=== PATIENT | female | born 1935 | race Caucasian/White ===

== ENCOUNTER → 2017-01-26 | Outpatient (CLI) | payer OTHER | LOC: CIMAGING 10:13 | PROVIDERS: ATTEND Internal Medicine | DX: Z12.31 Encounter for screening mammogram for malignant neoplasm of breast (principal); Z85.3 Personal history of malignant neoplasm of breast | CPT/HCPCS: G0202 ==

== ENCOUNTER → 2017-02-04 | Outpatient (CLI) | payer OTHER | LOC: BRMIMAGING 08:33 | PROVIDERS: ATTEND Internal Medicine | DX: Z13.820 Encounter for screening for osteoporosis (principal); M85.80 Other specified disorders of bone density and structure, unspecified site; Z82.62 Family history of osteoporosis ==

== ENCOUNTER → 2017-03-25 | Outpatient (CLI) | payer OTHER | LOC: FIMAGING 08:12 | PROVIDERS: ATTEND Physical Medicine & Rehabilitation | DX: M50.31 Other cervical disc degeneration, high cervical region (principal); M48.02 Spinal stenosis, cervical region; G95.20 Unspecified cord compression ==

== ENCOUNTER → 2017-04-04 | Outpatient (CLI) | payer OTHER ==
[~2017-04-04] MED LIST: METOCLOPRAMIDE 10 MG/2 ML VIAL ONE; MIDAZOLAM 2 MG/2 ML VIAL ONE; ONDANSETRON 4 MG/2 ML VIAL ONE; PHENYLEPHRINE HCL 100 MCG/ML SYR ONE; PROPOFOL 200 MG/20 ML VIAL ONE; PROPOFOL/EMULSION 500 MG/50 ML BOTTLE IV ONE; ROCURONIUM 50 MG/5 ML VIAL ONE; fentaNYL 100 MCG/2 ML INJ ONE
== END ==
LOC: CIMAGING 11:31
PROVIDERS: ATTEND Internal Medicine
DX: Z01.818 Encounter for other preprocedural examination (principal); R91.1 Solitary pulmonary nodule; I10 Essential (primary) hypertension; J44.9 Chronic obstructive pulmonary disease, unspecified; M48.9 Spondylopathy, unspecified
CPT/HCPCS: 71020-PO; J2250; J2370; J2405; J2704; J2765; J3010

== ENCOUNTER 2017-04-05 14:15 | Inpatient (IN) | payer OTHER ==
[2017-04-06] MEDS ORDERED: ceFAZolin 2 GM/DEXTROSE 100 ML IV ONE (06:10)
[2017-04-06] MEDS ORDERED: THROMBIN (BOVINE) 5,000 UNIT VIAL TP ONE (06:31)
[2017-04-06] MEDS ORDERED: BUPIVACAINE 0.25% 30 ML SDV ONE (06:31)
[2017-04-06] MEDS ORDERED: BACITRACIN 50,000 UNITS/10 ML SYR IRR ONE (06:32)
[2017-04-06] MEDS ORDERED: LIDOCAINE 1% 2 ML INJ ID PRN (06:36)
[2017-04-06] MEDS ORDERED: LR 1,000 ML IV ONE (06:36)
--- NOTE | 2017-04-06 06:54 | PDANEPAE ---
ANE Past Medical History - Cardiovascular History Hx Hypertension: Yes Hx Arrhythmias: No Hx Chest Pain: No Hx Coronary Artery / Peripheral Vascular Disease: No Hx CHF / Valvular Disease: No Hx Palpitations: No Cardiovascular History Comment: pcp monitors bp meds. born with heart murmur - Pulmonary History Hx COPD: No Hx Asthma/Reactive Airway Disease: No Hx Recent Upper Respiratory Infection: No Hx Oxygen in Use at Home: No Hx Sleep Apnea: No Sleep Apnea Screening Result - Last Documented: Negative Pulmonary History Comment: increase in sob being at elevation- lives in [place] most of the year. mild emphysema- no symptoms - Neurologic History Hx Cerebrovascular Accident: No Hx Seizures: No Hx Dementia: No - Endocrine History Hx Diabetes: No - Renal History Hx Renal Disorders: Yes Renal History Comment: hx of uti's - Liver History Hx Hepatic Disorders: No - Cancer History Hx Cancer: Yes Cancer History Comment: breast 2005 with chemo and radiation - Congenital Disorder History Hx Congenital Disorders: No - GI History Hx Gastrointestinal Disorders: Yes Gastrointestinal History Comment: sm hernia. runs constipation to diarrhea - Other Health History Other Health History: thin skin- bruises easily - Chronic Pain History Chronic Pain: Yes (right shoulder) - Surgical History Prior Surgeries: cataracts. right rtc repair. emergent hysterectomy. tonsillectomy. appy. lumpectomy. partial mastectomy and axillary node disection. carleen ANE Review of Systems Review of Systems: - Exercise capacity METS (RN): 2 METS ANE Patient History - Allergies Allergies/Adverse Reactions: nitrofurantoin Allergy (Verified 05/23/16 12:22) Itching - Home Medications Home Medications: Atenolol BID 05/23/16 [Last Taken Unknown] Methenamine Mandelate BID 05/23/16 [Last Taken Unknown] Nexium DAILY 05/23/16 [Last Taken Unknown] Tamoxifen Citrate DAILY06 05/23/16 [Last Taken Unknown] Triamterene/Hydrochlorothiazid DAILY06 05/23/16 [Last Taken Unknown] ZYRTEC DAILY06 05/23/16 [Last Taken Unknown] Herbal Drugs DAILY 04/04/17 [Last Taken Unknown] - NPO status NPO Since - Liquids (Date): 04/06/17 NPO Since - Liquids (Time): 05:00 NPO Since - Solids (Date): 04/05/17 NPO Since - Solids (Time): 19:30 - Smoking Hx Smoking Status: Former smoker - Family Anes Hx Family Hx Anesthesia Complications: None ANE Labs/Vital Signs - Vital Signs Blood Pressure: 113/62 Heart Rate: 71 Respiratory Rate: 16 O2 Sat (%): 92 Height: 160.02 cm Weight: 58.967 kg ANE Physical Exam - Airway Neck exam: decreased ROM Mallampati Score: Class 1 - ASA Status ASA Status: II ANE Anesthesia Plan Anesthesia Plan: general endotracheal anesthesia
--- NOTE | 2017-04-06 07:08 | PDHPUP ---
History & Physical Update H&P update statement: This history and physical update is based on an assessment of the patient which was completed after admission or registration (within 24 hours), but prior to the surgery/procedure. Patient reports some new tingling in her right thumb, index and middle fingers since her last appt.
[2017-04-06] MEDS ORDERED: LACTULOSE 20 GM/30 ML UDCUP PO PRN (09:11)
[2017-04-06] MEDS ORDERED: BISACODYL 10 MG SUPP PR PRN (09:11)
[2017-04-06] MEDS ORDERED: ONDANSETRON 4 MG/2 ML VIAL IVP PRN (09:11)
[2017-04-06] MEDS ORDERED: diphenhydrAMINE 25 MG CAP PO PRN (09:11)
[2017-04-06] MEDS ORDERED: MAGNESIUM HYDROXIDE 30 ML UDCUP PO PRN (09:11)
[2017-04-06] MEDS ORDERED: NS 1,000 ML IV SCH (09:15)
[2017-04-06] MEDS ORDERED: OXYCODONE/APAP 5/325 TAB PO PRN (09:47)
[2017-04-06] MEDS ORDERED: MEPERIDINE 25 MG/ML SYR IVP PRN (09:47)
[2017-04-06] MEDS ORDERED: NALOXONE HCL 0.4 MG/ML INJ IVP PRN (09:47)
[2017-04-06] MEDS ORDERED: LR 500 ML IV PRN (09:47)
[2017-04-06] MEDS ORDERED: PROMETHAZINE HCL 25 MG/ML INJ IVP PRN (09:47)
[2017-04-06] MEDS ORDERED: HYDROCODONE/APAP 5/325 TAB PO PRN (09:47)
[2017-04-06] MEDS ORDERED: DEXAMETHASONE 4 MG/ML VIAL IVP PRN (09:47)
--- NOTE | 2017-04-06 09:49 | POSTANESTH ---
Post Anesthetic Evaluation Cardiovascular Status: Normal, Stable Respiratory Status: Normal, Stable Level of Consciousness/Mental Status: Can Participate in Eval Pain Control: Adequate, Prn Tx Ordered Nausea/Vomiting Control: Adequate, Prn Tx Ordered Complications Possibly Related to Anesthesia: None Noted
[2017-04-06] MEDS ORDERED: fentaNYL 100 MCG/2 ML INJ ONE (10:35)
[2017-04-06] MEDS ORDERED: HYDROCODONE/APAP 5/325 TAB ONE ×2 (10:36→10:46)
[2017-04-06] MEDS: fentaNYL 100 MCG/2 ML INJ IVP PRN ×2 (10:43→11:18)
--- NOTE | 2017-04-06 10:52 | SOAPPROG ---
SOAP Progress Note Assessment/Plan: POST OP CHECK: Assessment: Doing well after C3-5 ACDF Plan: Hard collar at all times transfer to floor per Protocol 04/06/17 10:33 Subjective: sitting up in her bed b/c it is more comfortable speaking, oriented, comfortable voice is a bit hoarse Objective: Vital Signs Temp Pulse Resp BP Pulse Ox 36.8 C 71 16 113/62 92 04/06/17 06:20 04/06/17 06:54 04/06/17 06:54 04/06/17 06:54 04/06/17 06:54 Vitals: HR:72 BP; 153/61 02:100% NC Neuro: WILLIAMSON, sens +LT 4+5 bilateral deltoid (effort dependant) 5/5 otherwise in arms ICD10 Worksheet Patient Problems: Problems Problem Status Onset Primary localized osteoarthritis of left knee Acute
[2017-04-06] MEDS: ACETAMINOPHEN 500 MG TAB PO SCH ×2 (14:28→22:10)
[2017-04-06] MEDS: ceFAZolin 2 GM/DEXTROSE 100 ML IV SCH ×2 (14:31→22:25)
[2017-04-06] MEDS: oxyCODONE IR 5 MG TAB PO PRN ×4 (14:37→22:46)
[2017-04-06] MEDS: POLYETHYLENE GLYCOL 3350 17 GM PKT PO SCH ×2 (15:37→22:08)
[2017-04-06] MEDS: METHOCARBAMOL 750 MG TAB PO PRN (20:17)
[2017-04-06] MEDS ORDERED: METHENAMINE MANDELATE 500 MG PO SCH (21:00)
[2017-04-06] MEDS: SENNOSIDES/DOCUSATE SODIUM TAB PO SCH (22:07)
[2017-04-06] MEDS: FAMOTIDINE 20 MG TAB PO SCH (22:08)
[2017-04-06] MEDS: ATENOLOL 50 MG TAB PO SCH (22:09)
--- NOTE | 2017-04-07 01:16 | GOP ---
[f rep st] OPERATIVE REPORT DATE OF OPERATION: 04/06/2017 SURGEON: Jacobo Elizabeth MD [employer]ANGUAGES DEPARTMENT CHAIR: Gaudencio Burden, PAC. ANESTHESIA: General endotracheal. PREOPERATIVE DIAGNOSIS: 1. Progressive multilevel cervical spondylitic myelopathy. 2. Large disk herniation at C3-4 greater than C4-5. 3. Severe spinal cord compression. 4. High risk surgical candidate given age of 82 years, comorbidities, and required surgical interven tion. POSTOPERATIVE DIAGNOSIS: 1. Progressive multilevel cervical spondylitic myelopathy. 2. Large disk herniation at C3-4 greater than C4-5. 3. Severe spinal cord compression. 4. High risk surgical candidate given age of 82 years, comorbidities, and required surgical interven tion. PROCEDURE PERFORMED: 1. Mini open exposure for complete C3-4 and C4-5 anterior cervical diskectomy and arthrodesis with 2 structural PEEK interbody spacers, local autograft, and demineralized bone matrix. 2. Partial C4 vertebral corpectomy for decompression of spinal canal. 3. Placement of a C3 through C5 anterior cervical plate with self-drilling screws. 4. Use of intraoperative microscopy and fluoroscopy. FINDINGS: ESTIMATED BLOOD LOSS: Trace. INDICATIONS: The patient is an 82-year-old woman with multilevel cervical disk herniations causing s ignificant central canal stenosis and spinal cord compression, C3-4 greater than C4-5 levels. She pr esents now for surgical intervention. She was recently diagnosed with 2 pulmonary nodules that the [facility] is aware of, and I discussed this with the patient's primary care physician, Dr. Rachael knox. There is no impending doom with regard to the cancer and I felt that it was definitely in the pat ient's best interest to proceed with surgery decompressing her spinal cord due to the progression of her symptoms prior to working out the details of her possible lung cancer. DESCRIPTION OF PROCEDURE: After informed consent was obtained, the patient was taken to the operatin g room and placed in the supine position with the head in the halter retractor system. The anterior cervical region was prepped and draped in usual sterile fashion. After fluoroscopic localization of correct levels, the subcutaneous and intramuscular tissues were infiltrated with local anesthesia. A horizontal incision was then created at the level of the C4 vertebral body. This was carried throug h the platysmal layer using monopolar electrocautery and carried in the avascular plane between the s ternocleidomastoid and carotid sheath laterally and the strap muscles, trachea, and esophagus mediall y down to the prevertebral fascia, which was carefully incised with Metzenbaum scissors. The C3-4 an d C4-5 interspaces were identified and verified using intraoperative fluoroscopy. The large osteophy avelina were carefully removed and [place] distraction pins inserted and placed under slight amount of dis traction. The patient's bone was very soft and the inferior [place] pin migrated to the vertebral bod y into the C5-6 disk space and cracked some of the osteophytes protruding anteriorly. The pin was re moved and replaced in a different position, the osteophyte at the C5-6 level was removed, and the dis k fragments that had been disrupted were removed as well. I considered extending the fusion down to the C5-6 level but felt that it was not in her best interest based on the preoperative MRI and the fa ct that I found another location to secure the [place] distraction pin. I felt that the C5-6 level wa s not likely to give her problems in the future based on all the information I had. Following this a nd placing a slight amount of distraction across the interspaces, complete diskectomies were performe d at C3-4 and C4-5 levels under high-power microscopy. The endplates were prepared and the posterior longitudinal ligaments removed at these levels. Bilateral foraminotomies were performed. There was an extremely large disk herniation at the C3-4 level as well as the osteophytes protruding posterior ly, which were carefully removed. This required a fairly extensive amount of drilling at the superio r and inferior endplates of the C4 vertebral body. Approximately 50% of the vertebral body was drill ed away in order to adequately decompress the central canal and bilateral neural foramina at each lev el. This amounted to a partial C4 vertebral corpectomy. Following adequate decompression, the remai colette endplates were carefully prepared and appropriately sized structural PEEK interbody spacers pack ed with local autograft and demineralized bone matrix were placed in the interspaces under fluoroscop ic image guidance. The distraction was removed and an appropriately sized LnK CastleLoc-P anterior c ervical plate was then placed and secured from C3 through C5. The screw purchase was not terribly st roseanna but enough to likely hold the plate as long as she was in a hard collar for some time. The leida ining demineralized bone matrix was placed in the anterior hole of the plate. A drain was placed. T he subcutaneous and intramuscular tissues were re-infiltrated with local anesthesia and the wound was closed in a layered fashion using interrupted Vicryl sutures followed by Steri-Strips on the skin. COMPLICATIONS: None. DISPOSITION: The patient was extubated and transferred to the recovery room in stable condition. /[id number]/MODL
[2017-04-07] MEDS: ONDANSETRON DISINTEGRATING 4 MG TAB PO PRN ×2 (03:52→20:10)
[2017-04-07 05:02] LABS: % IMMATURE GRANULYOCYTES 0.9 % (0.0-1.1); ABSOLUTE IMMATURE GRANULOCYTES 0.08 10^3/uL (0.00-0.10); ABSOLUTE NRBC COUNT 0.04 10^3/uL (0-0.01); ADD DIFF? NO; ADD MORPH? NO; ADD SCAN? NO; ATYPICAL LYMPHOCYTE FLAG 10 (0-99); FRAGMENT RBC FLAG 0 (0-99); HEMATOCRIT 31.7 % (38.0-47.0); HEMOGLOBIN 10.7 g/dL (12.6-16.3); LEFT SHIFT FLG 0 (0-99); LIPEMIA HEMOLYSIS FLAG 90 (0-99); MEAN CELL HEMOGLOBIN 31.3 pg (27.9-34.1); MEAN CELL HEMOGLOBIN CONCENTR. 33.8 g/dL (32.4-36.7); MEAN CELL VOLUME 92.7 fL (81.5-99.8); MEAN PLATELET VOLUME 12.5 fL (8.7-11.7); NRBC-AUTO% 0.5 % (0.0-0.2); PLATELET CLUMPS FLAG 0 (0-99); PLATELET COUNT 172 10^3/uL (150-400); RED BLOOD CELL COUNT 3.42 10^6/uL (4.18-5.33); RED CELL DISTRIBUTION WIDTH 12.6 % (11.5-15.2)
[2017-04-07 05:09] LABS: ANION GAP 7 mEq/L (8-16); CALCIUM 8.4 mg/dL (8.5-10.4); CARBON DIOXIDE 26 mEq/l (22-31); CHLORIDE 100 mEq/L (97-110); CREATININE 0.7 mg/dL (0.6-1.0); GLOMERULAR FILTRATION RATE > 60; GLUCOSE 120 mg/dL (70-100); POTASSIUM 4.1 mEq/L (3.5-5.2); SODIUM 133 mEq/L (134-144)
[2017-04-07] MEDS: METHOCARBAMOL 750 MG TAB PO PRN ×3 (06:39→17:21)
[2017-04-07] MEDS: oxyCODONE IR 5 MG TAB PO PRN ×3 (06:39→17:54)
[2017-04-07] MEDS: ACETAMINOPHEN 500 MG TAB PO SCH ×3 (06:39→22:22)
--- NOTE | 2017-04-07 07:34 | SOAPPROG ---
SOAP Progress Note Assessment/Plan: Assessment: 82 yo F POD #1 C3-5 ACDF Plan: stable appreciate oncology consult last night will have her work with ST for dysphagia hard collar for 3 months PT/OT scd/natacha/lovenox for dvt prophylaxis will likelly DC RYANN prior to dc home patient seen by Dr Harris this am please call with neuro changes 04/07/17 07:31 Subjective: continued issue with dysphagia and neck pain. No arm pain, no weakness. Objective: Vital Signs Temp Pulse Resp BP Pulse Ox 36.8 C 68 16 114/55 L 93 04/07/17 04:00 04/07/17 04:00 04/07/17 04:00 04/07/17 04:00 04/07/17 04:00 Laboratory Results 04/07/17 04:24 04/07/17 04:24 04/06/17 04/07/17 04/08/17 05:59 05:59 05:59 Intake Total 700 Output Total 40 Balance 660 AAOX4, +FC PERRL, EOMI, no facial droop 5/5 + light touch C/D/I ICD10 Worksheet Patient Problems: Problems Problem Status Onset Primary localized osteoarthritis of left knee Acute
[2017-04-07] MEDS: CETIRIZINE 10 MG TAB PO SCH (08:25)
[2017-04-07] MEDS: TAMOXIFEN CITRATE 10 MG TAB PO SCH (08:26)
[2017-04-07] MEDS: ATENOLOL 50 MG TAB PO SCH ×2 (08:26→20:10)
[2017-04-07] MEDS: SENNOSIDES/DOCUSATE SODIUM TAB PO SCH ×2 (08:27→20:09)
[2017-04-07] MEDS: FAMOTIDINE 20 MG TAB PO SCH ×2 (08:27→20:10)
[2017-04-07] MEDS: TRIAMTERENE/HCTZ 37.5/25 1 EACH CAP PO SCH ×2 (08:27→08:52)
[2017-04-07] MEDS: POLYETHYLENE GLYCOL 3350 17 GM PKT PO SCH ×3 (08:31→23:06)
[2017-04-07] MEDS: ENOXAPARIN 40 MG/0.4 ML SYR SC SCH (08:58)
[2017-04-07] MEDS ORDERED: NON-FORMULARY NEW DRUG (Tamoxifen Citrate [Tamoxifen Citrate] 20 MG) PO SCH (09:00)
--- NOTE | 2017-04-07 14:38 | ASMTCMCOM ---
CM Note CM Note Notes: HR COORDINATOR clears pt, OT rec home vs. HHC vs. SNF, PT rec HHC. Spoke with pt and ana Chao, pt wants to consider short SNF placement and wants to ask surgeon his opinion. If SNF is d/c plan, pt can go Tuesday if medically stable. This CM left SNF and HHC lists. CM to follow. Date Signed: 04/07/2017 02:38 PM Electronically Signed By:VANE Abernathy
[2017-04-08] MEDS: ACETAMINOPHEN 500 MG TAB PO SCH ×3 (05:00→20:15)
--- NOTE | 2017-04-08 08:34 | SOAPPROG ---
SOAP Progress Note Assessment/Plan: Assessment: 82 yo F POD #2 C3-5 ACDF. Doing well. Plan: Pt/OT/ST DC planning. She is a candidate for SNF vs home with [facility]. hard collar for 3 months PT/OT scd/natacha/lovenox for dvt prophylaxis Plan: Hard collar at all times x 3 months speech therapy Continue Lovenox Subjective: standing at bedside. She is unsteady on her feet. Denies numbness, tingling or weakness. Has ongoing, expected dysphagia She is wearing her hard collar Objective: Vital Signs Temp Pulse Resp BP Pulse Ox 37.1 C 70 14 106/57 L 95 04/08/17 07:28 04/08/17 07:28 04/08/17 07:28 04/08/17 07:28 04/08/17 07:28 Laboratory Results 04/07/17 04:24 04/07/17 04:24 04/07/17 04/08/17 04/09/17 05:59 05:59 05:59 Intake Total 700 300 Output Total 40 Balance 660 300 Xrays show stable hardware C3-5 Neuro: WILLIAMSON, sens +LT with improved sensation in left hand ambulatory, but unsteady and needs walker Dressing: CDI No RYANN ICD10 Worksheet Patient Problems: Problems Problem Status Onset Primary localized osteoarthritis of left knee Acute
[2017-04-08] MEDS ORDERED: ENOXAPARIN 40 MG/0.4 ML SYR SC SCH (09:00)
[2017-04-08] MEDS: POLYETHYLENE GLYCOL 3350 17 GM PKT PO SCH ×3 (09:10→22:45)
[2017-04-08] MEDS: ATENOLOL 50 MG TAB PO SCH ×2 (09:10→20:10)
[2017-04-08] MEDS: SENNOSIDES/DOCUSATE SODIUM TAB PO SCH ×2 (09:10→22:45)
[2017-04-08] MEDS: TRIAMTERENE/HCTZ 37.5/25 1 EACH CAP PO SCH (09:11)
[2017-04-08] MEDS: CETIRIZINE 10 MG TAB PO SCH (09:11)
[2017-04-08] MEDS: TAMOXIFEN CITRATE 10 MG TAB PO SCH (09:11)
[2017-04-08] MEDS: FAMOTIDINE 20 MG TAB PO SCH ×2 (09:11→20:10)
[2017-04-08] MEDS: ENOXAPARIN 40 MG/0.4 ML SYR SC SCH (09:12)
--- NOTE | 2017-04-08 14:03 | ASMTCMCOM ---
CM Note CM Note Notes: Met at length w pt & ana Jeremie about d/c plan of care, today pt wants to go home w husb support and HHC. Gloria alex [facility] alerted. Pt plans to d/c tomorrow. Date Signed: 04/08/2017 02:02 PM Electronically Signed By:VANE Abernathy
--- NOTE | 2017-04-08 14:25 | ASMTCMCOM ---
CM Note CM Note Notes: This afternoon pt & husb decide for d/c to [facility]. Referral sent, Charley meeting w family. CM to follow. Date Signed: 04/08/2017 02:23 PM Electronically Signed By:VANE Abernathy
[2017-04-09] MEDS: ACETAMINOPHEN 500 MG TAB PO SCH ×3 (06:25→15:09)
[2017-04-09] MEDS: ATENOLOL 50 MG TAB PO SCH (08:12)
[2017-04-09] MEDS: ENOXAPARIN 40 MG/0.4 ML SYR SC SCH (08:12)
[2017-04-09] MEDS: CETIRIZINE 10 MG TAB PO SCH (08:14)
[2017-04-09] MEDS: FAMOTIDINE 20 MG TAB PO SCH (08:14)
[2017-04-09] MEDS: TAMOXIFEN CITRATE 10 MG TAB PO SCH (08:14)
[2017-04-09] MEDS: TRIAMTERENE/HCTZ 37.5/25 1 EACH CAP PO SCH (08:14)
[2017-04-09] MEDS: POLYETHYLENE GLYCOL 3350 17 GM PKT PO SCH (08:15)
[2017-04-09] MEDS: SENNOSIDES/DOCUSATE SODIUM TAB PO SCH (08:16)
[2017-04-09 11:59] VITALS: BP 114/55; PULSE 61; RESP 16; TEMP 98.7; O2SAT 93
--- NOTE | 2017-04-09 12:06 | NEUSURGPN ---
Assessment/Plan: Assessment: 82 yo F POD #3 C3-5 ACDF. Doing well. Plan: Pt/OT/ST Pain well managed on oral medications DC to [facility] today . hard collar for 3 months PT/OT scd/natacha/lovenox for dvt prophylaxis Continue Lovenox for 2 weeks postop [address] with Dr. Kimberly Santos: Patient is doing well, her swallowing is better with cold soft foods. Arms feel the same but are improving in strength. Eager to go to rehab. O: NAD, VSS Hard cervical collar in place BUE 5/5 BLE 5/5= DTR brisk 3+ bilateral patellar Negative Cheney's Gait not visualized Incision c/d/i- - Physician Discussed Patient with : [facility] Physical Exam - Vitals, I&O, Labs I and O 04/08/17 04/09/17 04/10/17 05:59 05:59 05:59 Intake Total 300 250 480 Balance 300 250 480 Intake: Oral (ml) 300 250 480 Other: Intake Quantity Yes Yes Yes Sufficient Number of Voids Toilet 1 Number of Stools Toilet 4 Vital Signs Temp Pulse Resp BP Pulse Ox 37.1 C 61 16 114/55 L 93 04/09/17 11:55 04/09/17 11:55 04/09/17 11:55 04/09/17 11:55 04/09/17 11:55 Laboratory Results 04/07/17 04:24 04/07/17 04:24 ICD10 Worksheet Patient Problems: Problems Problem Status Onset Primary localized osteoarthritis of left knee Acute
--- NOTE | 2017-04-09 12:12 | PDIAF ---
- Diagnosis Code Status: Full Code - Medication Management Discharge Medications: Medications to Continue on Transfer Atenolol [Tenormin 50 mg (*)] 50 mg PO BID 05/23/16 [Last Taken 04/06/17 05:00] Cetirizine [ZyrTEC 10 mg (*)] 10 mg PO DAILY 05/23/16 [Last Taken 04/03/17] Tamoxifen Citrate 20 mg PO DAILY 05/23/16 [Last Taken 04/04/17] Triamterene/Hydrochlorothiazid [Triamterene-Hctz 37.5-25 mg Cp] 1 each PO DAILY 05/23/16 [Last Taken 04/05/17] Herbals/Supplements -Info Only 1 each PO DAILY 04/04/17 [Last Taken Unknown] Methenamine Mandelate [METHENAMINE MANDELATE] 500 mg PO BID 04/06/17 [Last Taken Unknown] Omeprazole [Prilosec 20 mg] 40 mg PO DAILY 04/06/17 [Last Taken 04/04/17] Acetaminophen [Tylenol ES 500 mg (*)] 1,000 mg PO Q8HRS tab 04/09/17 [Last Taken Unknown] Enoxaparin [Lovenox 40 MG (*)] 40 mg SC DAILY syr 04/09/17 [Last Taken Unknown] Methocarbamol [Robaxin 750 mg (*)] 750 mg PO QID PRN tab 04/09/17 [Last Taken Unknown] Ondansetron Odt [Zofran Odt 4 mg (*)] 4 - 8 mg PO Q6HRS PRN tab 04/09/17 [Last Taken Unknown] Polyethylene Glycol 3350 [Miralax 17 gm (*)] 17 gm PO TID pkt 04/09/17 [Last Taken Unknown] Sennosides/Docusate Sodium [Senokot-S] 1 - 2 tab PO BID tab 04/09/17 [Last Taken Unknown] oxyCODONE IR [Oxycodone Ir (*)] 5 - 10 mg PO Q4HRS PRN tab 04/09/17 [Last Taken Unknown] Discharge Medications: Refer to the Discharge Home Medication list for PRN reason. - Orders Services needed: Registered Nurse, Physical Therapy, Occupational Therapy Diet Recommendation: no restrictions on diet Diet Texture: Dysphagia 2 - Mechanically Altered - Chopped, Ground, Thin Liquids , Meds Whole in Puree Grant Stockings Discontinue Date: Contin Lovenox for 2 weeks postop. Continue stockings until walking 3X day Wound Care Instructions: may get incision wet on postop day #3, warm soapy water ok, pat dry with towel. may remove large dressing. Activity/Weight Bearing Restrictions: wear your collar at all times for 3 months may use Liz collar for shower. No lifting more than 10 pounds - Follow Up Care Current Providers and Referrals: Krystal Yarbrough MD [Primary Care Provider] - Jacobo Elizabeth MD [Medical Doctor] - follow up in 2 weeks (as scheduled on April 19)
--- NOTE | 2017-04-09 12:35 | ASDISCHSUM ---
Discharge Information Plan Status:SNF Medically Cleared to Leave: Discharge Date: D/C Disposition: ADT D/C Disposition:Other Rehab, Not Foley Projected Discharge Date:04/09/2017 11:00 AM Transportation at D/C: Discharge Delay Reason: Follow-Up Date:04/09/2017 11:00 AM Discharge Slot: Final Diagnosis: Placement Information Referral Type:*Retirement/SNF Referral ID:[id number]-[id number] Provider Name:Yamile Fair Address 1:[address] Phone Number: Address 2: Fax Number: City:[place] Selection Factors: State:[place] Patient Contact Information Contact Name:NASRA Relationship: Address:[address] Home Phone: City:[place] Alternate Phone: [facility]/Zip Code:[place] [address] Email: Financial Information Financial Class: Primary Plan Desc:MEDICARE INPATIENT Primary Plan Number:[id number] Secondary Plan Desc:[facility] Secondary Plan Number:[id number] Assessment Information [facility] CM Progress Note CM Note CM Note Notes: WELDING TESTER clears pt, OT rec home vs. HHC vs. SNF, PT rec HHC. Spoke with pt and ana Chao, pt wants to consider short SNF placement and wants to ask surgeon his opinion. If SNF is d/c plan, pt can go Tuesday if medically stable. This CM left SNF and HHC lists. CM to follow. Date Signed: 04/07/2017 02:38 PM Electronically Signed By:VANE Abernathy [facility] CM Progress Note CM Note CM Note Notes: Met at length w pt & husb Jeremie about d/c plan of care, today pt wants to go home w [facility] support and [facility]. Gloria alex [facility] alerted. Pt plans to d/c tomorrow. Date Signed: 04/08/2017 02:02 PM Electronically Signed By:VANE Abernathy [facility] CM Progress Note CM Note CM Note Notes: This afternoon pt & ana decide for d/c to [facility]. Referral sent, Vero dickson. CM to follow. Date Signed: 04/08/2017 02:23 PM Electronically Signed By:VANE Abernathy [facility] CM Progress Note CM Note CM Note Notes: Pt ready for DC today. [facility] arranged W/C pickup for 4:00 with [facility]. Final orders faxed. Date Signed: 04/09/2017 12:33 PM Electronically Signed By:Kendra Berry LCSW Intervention Information
--- NOTE | 2017-04-10 10:58 | POSTOPPROG ---
Post Op Note Date of Operation: 04/10/17 Surgeon: Jacobo Elizabeth Recording Artist: Jenise Anesthesia: GET(General Endotracheal) Pre-op Diagnosis: Cervical spondylitic myelopathy, cervical stenosis Post-op Diagnosis: same Indication: Myelopathy Procedure: C3/4,C4/5 ACDF and C3-5 plating, partial C5/6 discectomy Findings: severe stenosis Inf/Abcess present in the surg proc area at time of surgery?: No EBL: 50-100 Complications: See Dr. Elizabeth's operative report Drains: Erasmo Ren (to bulb suction)
== END 2017-04-09 16:05 | DRG 473 ==
LOC: OBSVTOIN 04-06 05:51 → F3N 04-06 05:51
PROVIDERS: ADMIT Neurological Surgery; ATTEND Neurological Surgery
DX: M50.01 Cervical disc disorder with myelopathy, high cervical region (principal); R13.10 Dysphagia, unspecified; J43.9 Emphysema, unspecified; Z87.891 Personal history of nicotine dependence; R91.8 Other nonspecific abnormal finding of lung field; I10 Essential (primary) hypertension; M19.91 Primary osteoarthritis, unspecified site; Z85.3 Personal history of malignant neoplasm of breast
CPT/HCPCS: 71020-PO; 71250-PO; 80053-PO; 85025-PO; 92526-GN; 92610-GN; 97116-GP; 97161-GP; 97165-GO; 97535-GO; C1713; G8978-GP-CK; G8979-GP-CI; G8987-GO-CJ; G8988-GO-CI; G8996-GN-CJ; G8997-GN-CI; J0171; J0690; J1650; J2250; J2370; J2405; J2704; J2765; J3010

== ENCOUNTER → 2017-04-05 | Outpatient (CLI) | payer OTHER | LOC: CIMAGING 13:28 | PROVIDERS: ATTEND Internal Medicine | DX: R91.1 Solitary pulmonary nodule (principal); I70.8 Atherosclerosis of other arteries | CPT/HCPCS: 71250-PO ==

== ENCOUNTER → 2017-04-22 | Outpatient (CLI) | payer OTHER ==
[~2017-04-22] MED LIST changes: +IOPAMIDOL (ISOVUE-300) 100 ML BTL ONE; -METOCLOPRAMIDE 10 MG/2 ML VIAL ONE; -MIDAZOLAM 2 MG/2 ML VIAL ONE; -ONDANSETRON 4 MG/2 ML VIAL ONE; -PHENYLEPHRINE HCL 100 MCG/ML SYR ONE; -PROPOFOL 200 MG/20 ML VIAL ONE; -PROPOFOL/EMULSION 500 MG/50 ML BOTTLE IV ONE; -ROCURONIUM 50 MG/5 ML VIAL ONE; -fentaNYL 100 MCG/2 ML INJ ONE
== END ==
LOC: CIMAGING 10:04
PROVIDERS: ATTEND Internal Medicine
DX: N28.89 Other specified disorders of kidney and ureter (principal); K57.30 Diverticulosis of large intestine without perforation or abscess without bleeding
CPT/HCPCS: 74170; Q9967

== ENCOUNTER 2017-05-13 09:29 | Day surgery (SDC) | payer OTHER ==
[2017-05-13] MEDS ORDERED: NS 1,000 ML IV SCH ×2 (09:45)
[2017-05-13] MEDS ORDERED: GLUCAGON HCL 1 MG VIAL IVP PRN ×2 (09:45)
[2017-05-13] MEDS ORDERED: ALTEPLASE 2 MG VIAL IVP PRN ×2 (09:45)
[2017-05-13] MEDS ORDERED: PROTAMINE SULFATE 50 MG/5 ML VIAL IVP PRN ×2 (09:45)
[2017-05-13] MEDS ORDERED: HEPARIN 10,000 UNIT/10 ML MDV IVP PRN ×2 (09:45)
[2017-05-13] MEDS ORDERED: fentaNYL 100 MCG/2 ML INJ IVP PRN ×2 (09:46)
[2017-05-13] MEDS ORDERED: MIDAZOLAM 2 MG/2 ML VIAL IVP PRN ×2 (09:46)
[2017-05-13] MEDS ORDERED: NALOXONE HCL 0.4 MG/ML INJ IVP PRN ×2 (09:46)
[2017-05-13] MEDS ORDERED: MEPERIDINE 25 MG/ML SYR IVP PRN ×2 (09:46)
[2017-05-13] MEDS ORDERED: FLUMAZENIL 0.5 MG/5 ML MDV IVP PRN ×2 (09:46)
[2017-05-13 10:25] VITALS: TEMP 98.9
[2017-05-13] MEDS ORDERED: FLUMAZENIL 0.5 MG/5 ML MDV IVP ONE ×2 (10:50)
[2017-05-13] MEDS ORDERED: NALOXONE HCL 0.4 MG/ML INJ ONE ×2 (10:50)
[2017-05-13] MEDS ORDERED: fentaNYL 100 MCG/2 ML INJ ONE ×2 (10:50)
[2017-05-13] MEDS ORDERED: MIDAZOLAM 2 MG/2 ML VIAL ONE ×2 (10:50)
--- NOTE | 2017-05-13 11:21 | PDPROPOC ---
Sedation Plan of Care Sedation Plan of Care: vital signs stable, mental status noted, patient educated of risks, benefits, alternatives, patient can tolerate sedation ASA Classification: ASA 3 Mallampati Score: Class 2 Mallampati Reference Image: Patient passed 3-3-2 rule?: Yes
--- NOTE | 2017-05-13 11:23 | PDGENHP ---
History & Physical Chief Complaint: YUE nodule History of Present Illness: Needs tissue for diagnosis. S/P recent cervical fusion with colar on. Dr. Harris permitted taking colar off while patient is in neutral position. Pertinent Past, Social, Family History: N/A Relevant Physical Exam: Small peripherally based YUE lung nodule. Cardiorespiratory Assessment: Lungs clear. Heart R/R
[2017-05-13] MEDS ORDERED: oxyCODONE IR 5 MG TAB PO PRN ×2 (13:27)
[2017-05-13] MEDS ORDERED: ACETAMINOPHEN 325 MG TAB PO PRN ×2 (14:04)
--- NOTE | 2017-05-13 14:32 | PDRADPN ---
Radiology Procedure Note Date of Procedure: 05/13/17 Radiologist: Zoey Gandhi Anesthesia: IV Sedation Pre-op Diagnosis: YUE NODULE Post-op Diagnosis: SAME Indication: NEEDS TISSUE DIAGNOSIS Procedure: CT GUIDED YUE NODULE BIOPSY Finding(s): SMALL PTX; CORES OBTAINED Inf/Abcess present in the surg proc area at time of surgery?: No EBL: Minimal Complications: SMALL PTX Specimen(s): SEVERAL CORES SENT TO PATH.
[2017-05-13 15:56] VITALS: PULSE 60; RESP 14
[2017-05-13 16:37] VITALS: BP 111/65; O2SAT 92
== END 2017-05-13 17:00 | disposition home or self-care (01) ==
LOC: FIMAGING 09:29
PROVIDERS: ATTEND Internal Medicine Hematology & Oncology
PROC: 0BBG3ZX Excision of Left Upper Lung Lobe, Percutaneous Approach, Diagnostic (ICD-10-PCS; principal; 2017-05-13 12:55)
DX: C34.12 Malignant neoplasm of upper lobe, left bronchus or lung (principal); J95.811 Postprocedural pneumothorax; M50.30 Other cervical disc degeneration, unspecified cervical region; N28.1 Cyst of kidney, acquired; I10 Essential (primary) hypertension; Z87.891 Personal history of nicotine dependence; Z85.3 Personal history of malignant neoplasm of breast; Z98.1 Arthrodesis status
CPT/HCPCS: J2250; J2310; J3010

== ENCOUNTER 2017-05-31 09:39 | Inpatient (IN) | payer OTHER ==
--- NOTE | 2017-05-30 23:03 | GHP ---
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 This was found incidentally with a nodule on chest x-ray and was followed up by CT scan an d PET scans. She is otherwise asymptomatic. She does have a 40 pack-year smoking history and quit a t age 56. She has no prior documented COPD or use of oxygen or inhalers. She had pulmonary function tests with pulmonology which in short are near normal, with evidence of mild obstructive disease radha t seems to improve slightly after bronchodilators. Of note, she is wearing a hard collar today after fairly recent cervical spine surgery with Dr. Sj greenberg. PAST MEDICAL HISTORY: Mild COPD as described above. Left breast cancer about 12 years ago, treated with lumpectomy, lymph node dissection, chemotherapy, and radiation treatment, followed by tamoxifen. Also arthritis, cataracts, cold sores, hypertension, history of pneumonia, recurrent urinary tract infections. PAST SURGICAL HISTORY: Appendectomy, axillary dissection, breast biopsy, breast lumpectomy, cataract surgery, gallbladder removal, hysterectomy, knee surgery, lumpectomy, rotator cuff, tonsillectomy, c ervical spine surgery. MEDICATIONS: Include atenolol, biotin, cetirizine, cranberry, Dyazide, fluticasone, glucosamine jennifer droitin, methenamine mandelate, multivitamin, omeprazole, Robaxin, tamoxifen, Tylenol. ALLERGIES: Furadantin causes itching and severe swelling. SOCIAL HISTORY: Patient is a former smoker. Quit at age 56. Was a 1 pack per day if not more 40-ye ar smoker. REVIEW OF SYSTEMS: Negative for lung cancer. PHYSICAL EXAMINATION: GENERAL: A well-groomed thin but nourished 82-year-old female, alert and orie nted x3, in no acute distress. HEENT: Normocephalic, atraumatic. Pupils equal and round. No neck bruits. CHEST: Clear to auscultation bilaterally, without wheezes, rhonchi, or rales. No work of b reathing. CARDIAC: Regular rate and rhythm. ABDOMEN: Soft, nontender. EXTREMITIES: Warm and dry . No edema. PSYCH: Normal mood and affect. NEURO: Grossly intact. IMPRESSION: This is an 82-year-old female, currently in a hard collar after a cervical spine surgery , with a history of breast cancer, now with a new primary left upper lobe lung cancer. PLAN: Plan is to proceed with a left video-assisted thorascopic surgery with lobectomy, possible tho racotomy. Risks and options have been discussed including, but not limited to, bleeding, infection, nerve injury, rib fractures, pneumonia, pneumothorax, hemothorax, damage to surrounding structures, a nd other problems, and she requests to proceed. Again, we have obtain PFTs with Pulmonology, Dr. Maurilio Chadwick. She requests to proceed. /[id number]/MODL
[2017-05-31] MEDS ORDERED: ceFAZolin 2 GM/DEXTROSE 100 ML IV ONE (10:00)
[2017-05-31] MEDS ORDERED: LR 1,000 ML IV ONE (10:01)
[2017-05-31] MEDS ORDERED: LIDOCAINE 1% 2 ML INJ ID PRN (10:01)
[2017-05-31] MEDS ORDERED: ceFAZolin 2 GM/SWFI 2 GM/20 ML SYR IVP ONE (10:30)
[2017-05-31 11:01] LABS: ANION GAP 12 mEq/L (8-16); CARBON DIOXIDE 22 mEq/l (22-31); CHLORIDE 102 mEq/L (97-110); CREATININE 0.7 mg/dL (0.6-1.0); GLOMERULAR FILTRATION RATE > 60; GLUCOSE 87 mg/dL (70-100); POTASSIUM 4.4 mEq/L (3.5-5.2); SODIUM 136 mEq/L (134-144)
[2017-05-31] MEDS ORDERED: BUPIVACAINE 0.5% 30 ML SDV ONE ×2 (12:48→16:43)
[2017-05-31] MEDS ORDERED: MIDAZOLAM 2 MG/2 ML VIAL ONE (14:10)
[2017-05-31] MEDS ORDERED: fentaNYL 100 MCG/2 ML INJ ONE ×4 (14:10→17:49)
[2017-05-31] MEDS ORDERED: PROPOFOL/EMULSION 500 MG/50 ML BOTTLE IV ONE (14:10)
[2017-05-31] MEDS ORDERED: ALBUMIN 5% 250 ML BOTTLE IV ONE (14:19)
[2017-05-31] MEDS ORDERED: HEPARIN 1000 UNIT/1 ML MDV ONE (15:48)
[2017-05-31] MEDS ORDERED: ceFAZolin 1 GM/5 ML SYR ONE (15:49)
[2017-05-31] MEDS ORDERED: ONDANSETRON 4 MG/2 ML VIAL ONE (15:57)
[2017-05-31] MEDS ORDERED: ROCURONIUM 50 MG/5 ML VIAL ONE ×2 (15:57→17:02)
[2017-05-31] MEDS ORDERED: DEXAMETHASONE 4 MG/ML VIAL ONE (15:57)
[2017-05-31] MEDS ORDERED: SUGAMMADEX SODIUM 200 MG/2 ML VIAL IVP ONE (15:57)
[2017-05-31] MEDS ORDERED: LIDOCAINE 2% 5 ML SDV ONE (15:57)
[2017-05-31] MEDS ORDERED: RANITIDINE 50 MG/2 ML VIAL ONE (15:57)
[2017-05-31 16:26] LABS: BASE EXCESS -3.3 mEq/L (-2.5-2.5); BICARBONATE 22 mEq/L (22-26); IONIZED CALCIUM 1.17 MMOL/L (1.12-1.30); MEASURED OXYGEN SATURATION 97 % (92-95); PCO2 41 mmHg (34-38); PO2 108 mmHg (65-75); SODIUM ABG 136 mEq/L (137-146); TCO2 23 mEq/L (23-27)
[2017-05-31 16:29] LABS: O2 CONCENTRATIION 100 % (0-100); P/F RATIO 108 RATIO
[2017-05-31] MEDS ORDERED: ONDANSETRON 4 MG/2 ML VIAL IVP PRN ×3 (17:25→17:32)
--- NOTE | 2017-05-31 17:25 | POSTOPPROG ---
Post Op Note Date of Operation: 05/31/17 Surgeon: Carlton Benavides Engineer And Geologist: Ruthy Sparks Anesthesiologist: Zandra Sawant Anesthesia: GET(General Endotracheal) Pre-op Diagnosis: YUE squamous lung cancer Post-op Diagnosis: same Procedure: L VATS c L thoracotomy and YUE lobectomy Findings: tumor in specimen, bronchial margin confirmed clear by pathology Inf/Abcess present in the surg proc area at time of surgery?: No EBL: 300cc Complications: none Drains: Other (2 - 28 Fr chest tubes)
[2017-05-31] MEDS ORDERED: ALBUTEROL 3 ML DEYVIAL IH PRN (17:28)
[2017-05-31] MEDS ORDERED: NALOXONE HCL 0.4 MG/ML INJ IVP PRN (17:28)
[2017-05-31] MEDS ORDERED: LR 500 ML IV PRN (17:28)
[2017-05-31] MEDS ORDERED: METHOCARBAMOL 750 MG TAB PO PRN (17:30)
[2017-05-31] MEDS ORDERED: NS 1,000 ML IV SCH (17:30)
--- NOTE | 2017-05-31 17:30 | PDANEPAE ---
ANE Past Medical History - Cardiovascular History Hx Hypertension: Yes Hx Arrhythmias: No Hx Chest Pain: No Hx Coronary Artery / Peripheral Vascular Disease: No Hx CHF / Valvular Disease: No Hx Palpitations: No Cardiovascular History Comment: pcp monitors bp meds - Pulmonary History Hx COPD: No Hx Asthma/Reactive Airway Disease: No Hx Recent Upper Respiratory Infection: No Hx Oxygen in Use at Home: No Hx Sleep Apnea: No Sleep Apnea Screening Result - Last Documented: Negative Pulmonary History Comment: L lobe lulng CA. increase in sob being at elevation - lives in [place] most of the year. mild emphysema- no symptoms -stopped smoking 1989 - Neurologic History Hx Cerebrovascular Accident: No Hx Seizures: No Hx Dementia: No - Endocrine History Hx Diabetes: No - Renal History Hx Renal Disorders: No Renal History Comment: hx of uti's - Liver History Hx Hepatic Disorders: No - Neurological & Psychiatric Hx Hx Neurological and Psychiatric Disorders: Yes Neurological / Psychiatric History Comment: weakness L arm, w/weakness - Cancer History Hx Cancer: Yes Cancer History Comment: L breast 2005 with chemo and radiation - Congenital Disorder History Hx Congenital Disorders: No - GI History Hx Gastrointestinal Disorders: Yes Gastrointestinal History Comment: sm hernia. hard stools - Other Health History Other Health History: thin skin- bruises easily - Chronic Pain History Chronic Pain: No - Surgical History Prior Surgeries: ACDF 04-06-17. cataracts. right rotator cuff repair. emergent hysterectomy. tonsillectomy. appy. anterior cervial infusion C3-4, 4 -5. partial L knee replacement. lumpectomy. partial mastectomy and axillary node disection. carleen BECKIE Review of Systems Review of Systems: - Exercise capacity METS (RN): 4 METS ANE Patient History - Allergies Allergies/Adverse Reactions: nitrofurantoin Allergy (Mild, Verified 05/10/17 11:25) Itching - Home Medications Home Medications: Atenolol [Tenormin 50 mg (*)] 50 mg PO BID 05/23/16 [Last Taken 05/31/17 07:00] Cetirizine [ZyrTEC 10 mg (*)] 10 mg PO DAILY 05/23/16 [Last Taken 05/31/17 07:00 ] Tamoxifen Citrate 20 mg PO DAILY 05/23/16 [Last Taken 05/31/17 07:00] Triamterene/Hydrochlorothiazid [Triamterene-Hctz 37.5-25 mg Cp] 1 each PO DAILY 05/23/16 [Last Taken 05/30/17 20:00] Herbals/Supplements -Info Only 1 each PO DAILY 04/04/17 [Last Taken 05/30/17 08: 00] Methenamine Mandelate [METHENAMINE MANDELATE] 500 mg PO BID 04/06/17 [Last Taken 05/31/17 07:00] Esomeprazole Mag Trihydrate [Nexium] 40 mg PO DAILY 05/10/17 [Last Taken ] Acetaminophen [Tylenol ES 500 mg (*)] 1,000 mg PO Q8HRS PRN 05/30/17 [Last Taken 05/31/17 07:30] Methocarbamol [Robaxin 750 mg (*)] 750 mg PO DAILY PRN 05/30/17 [Last Taken ] - NPO status NPO Since - Liquids (Date): 05/31/17 NPO Since - Liquids (Time): 08:30 NPO Since - Solids (Date): 05/30/17 NPO Since - Solids (Time): 21:00 - Smoking Hx Smoking Status: Former smoker - Family Anes Hx Family Hx Anesthesia Complications: None ANE Labs/Vital Signs - Labs Result Diagrams: 05/31/17 10:35 - Vital Signs Blood Pressure: 139/66 Heart Rate: 62 Respiratory Rate: 16 O2 Sat (%): 94 Height: 160.02 cm Weight: 56.245 kg ANE Physical Exam - Airway Neck exam: FROM, C-collar in place Mallampati Score: Class 1 Mouth exam: normal dental/mouth exam - Pulmonary Pulmonary: no respiratory distress, no rales or rhonchi, reduced air movement - Cardiovascular Cardiovascular: regular rate and rhythym, no murmur, rub, or gallop - ASA Status ASA Status: III ANE Anesthesia Plan Anesthesia Plan: general endotracheal anesthesia Lines/Monitors: arterial line Specialized Airway: double lumen tube, video laryngoscope
[2017-05-31] MEDS: fentaNYL 100 MCG/2 ML INJ IVP PRN ×2 (17:53→18:04)
--- NOTE | 2017-05-31 18:24 | POSTANESTH ---
Post Anesthetic Evaluation Cardiovascular Status: Normal, Stable Respiratory Status: Normal, Stable Level of Consciousness/Mental Status: Mildly Sleepy, Arousable Pain Control: Adequate, Prn Tx Ordered Nausea/Vomiting Control: Adequate, Prn Tx Ordered Complications Possibly Related to Anesthesia: None Noted
[2017-05-31] MEDS: HYDROmorphONE/DILAUDID 1 MG/ML INJ IVP PRN ×3 (19:54→21:22)
[2017-05-31] MEDS: ATENOLOL 50 MG TAB PO SCH (21:23)
[2017-05-31] MEDS: METHENAMINE HIPP 1 GM TAB PO SCH ×2 (21:24→21:31)
[2017-05-31] MEDS: BUPIVACAINE 0.5% 30 ML SDV MISC SCH ×2 (21:47→22:24)
[2017-06-01] MEDS: BUPIVACAINE 0.5% 30 ML SDV MISC SCH ×6 (01:42→23:52)
[2017-06-01] MEDS: DEXMEDETOMIDINE IN 0.9 % NACL 100 ML IV SCH ×2 (02:43→13:00)
[2017-06-01] MEDS: NS W/ 20 KCl/L 1,000 ML IV SCH ×2 (04:49→18:00)
[2017-06-01] MEDS: HYDROmorphONE/DILAUDID 1 MG/ML INJ IVP PRN ×2 (04:54→09:09)
[2017-06-01 04:59] LABS: HEMATOCRIT 32.9 % (38.0-47.0); HEMOGLOBIN 11.4 g/dL (12.6-16.3)
[2017-06-01 05:54] LABS: ANION GAP 11 mEq/L (8-16); CARBON DIOXIDE 22 mEq/l (22-31); CHLORIDE 104 mEq/L (97-110); CREATININE 0.6 mg/dL (0.6-1.0); GLOMERULAR FILTRATION RATE > 60; GLUCOSE 137 mg/dL (70-100); POTASSIUM 4.2 mEq/L (3.5-5.2); SODIUM 137 mEq/L (134-144)
[2017-06-01] MEDS: ATENOLOL 50 MG TAB PO SCH ×2 (08:52→20:10)
[2017-06-01] MEDS: CETIRIZINE 10 MG TAB PO SCH (08:54)
[2017-06-01] MEDS: METHENAMINE HIPP 1 GM TAB PO SCH ×2 (08:56→20:57)
[2017-06-01] MEDS: HYDROmorphone HCL/NS/PF 0.4 MG/2 ML SYR IVP PRN ×2 (09:00→15:18)
[2017-06-01] MEDS: TRIAMTERENE/HCTZ 37.5/25 1 EACH CAP PO SCH (09:04)
[2017-06-01] MEDS: TAMOXIFEN CITRATE 10 MG TAB PO SCH (09:06)
--- NOTE | 2017-06-01 09:47 | SOAPPROG ---
SOAP Progress Note Assessment/Plan: Assessment: ALERT, COMFORTABLE/ AFEBRILE/LARGE AIR LEAK/ MODERATE CT OUTPUT DOING QUITE WELL Plan:CONTINUE MONITOR IN ICU 06/01/17 09:45 Objective: Vital Signs Temp Pulse Resp BP Pulse Ox 35.9 C L 64 17 131/56 H 98 06/01/17 08:00 06/01/17 08:00 06/01/17 08:00 06/01/17 08:00 06/01/17 08:00 Laboratory Results 06/01/17 04:30 06/01/17 04:30 05/31/17 06/01/17 06/02/17 05:59 05:59 05:59 Intake Total 2284 Output Total 2225 150 Balance 59 -150 ICD10 Worksheet Patient Problems: Problems Problem Status Onset Primary localized osteoarthritis of left knee Acute
[2017-06-01] MEDS: PANTOPRAZOLE SODIUM 40 MG TAB PO SCH (09:50)
--- NOTE | 2017-06-01 11:13 | ASMTCASEMG ---
Living Arrangements What is your living Answers: With Spouse arrangement? Who do you live with? Type Of Residence What kind of residence do Answers: House you live in? Discharge Plan Comments Coordination Status Comments Notes: Patient is an 82yo female with a hx of breast cancer, now with a suspicious left upper lobe pulmonary nodule. Patient is wearing a hard collar after fairly recent cervical spine surgery with Dr. Elizabeth. Plan : video-assissted thorascopic surgery with lobectomy, possible thoracotomy. PT and SPL have been ordered. Await therapies recommendations to determine d/c needs. CM will follow. Date Signed: 06/01/2017 11:12 AM Electronically Signed By:Pao Huertas LCSW
[2017-06-01] MEDS: KETOROLAC 15 MG/1 ML SDV IVP SCH ×3 (12:04→23:54)
[2017-06-01] MEDS ORDERED: NS 500 ML IV ONE (12:33)
--- NOTE | 2017-06-01 14:36 | GCON ---
[f rep st] CONSULTATION PULMONARY CRITICAL CARE CONSULTATION DATE OF CONSULTATION: 06/01/2017 REASON FOR CONSULTATION: Status post left upper lobectomy for lung cancer and COPD. HISTORY OF PRESENT ILLNESS: The patient is a very pleasant 82-year-old, who is known to me from the office. I saw her recently for preoperative pulmonary clearance. This followed the diagnosis of rosemarie ryan lung cancer in the left upper lobe by percutaneous biopsy. Pulmonary function studies were near normal. She did have mild obstructive disease with some improvement after bronchodilator. She unde rwent surgery yesterday. This went well. Video-assisted techniques were used with a small left thor acotomy. Margins were clear by frozen sections at the time of surgery. She returned to the intensiv e care unit in good condition. Chest tubes are in place. There is an air leak. She does report danish e postoperative pain, as expected, and some mild confusion, but clinically she is doing quite well. PAST MEDICAL HISTORY: Remarkable for a long history of tobacco abuse, approximately 40 pack years, m ild COPD in reversibility, distant history of breast cancer, treated with resection, radiation and ta moxifen. Systemic hypertension, allergies, and gastroesophageal reflux disease. OUTPATIENT MEDICATIONS: As listed. SOCIAL HISTORY: She is . No longer smoking. Significant alcohol is denied. FAMILY HISTORY: Noncontributory. REVIEW OF SYSTEMS: She recently had cervical spine surgery with Dr. Harris. She is in a hard collar for this and is tolerating this relatively well. There is no history of heart disease or thromboembolic disease. She has never been on inhalers for her COPD. The 10-point review of systems is otherwise n egative. PHYSICAL EXAMINATION: GENERAL: Reveals a very pleasant woman who is resting comfortably in bed. Sh e is on supplemental oxygen at 2 L. Chest tubes and a Oropeza catheter are in place. VITAL SIGNS: Bl ood pressure is approximately 110/50, heart rate 63 with sinus rhythm on the monitor. Respiratory ra te is 16. On 2 L saturations are 98%. She is afebrile. HEENT: Unremarkable for lymphadenopathy, t hyromegaly, or jugular venous distention. PULMONARY: The chest reveals coarse breath sounds and tub e noises on the left side. Two chest tubes are in place with serosanguineous drainage and a relative ly large air leak. The right side is remarkable for the left-sided noises being transmitted across. There are no obvious rales or rhonchi. HEART: Regular in rate and rhythm. Heart tones are distant and difficult to appreciate. There is no obvious gallop. ABDOMEN: Soft, nontender. Bowel sounds are present, but diminished. There is no organomegaly. EXTREMITIES: Unremarkable for edema, cords, or tenderness. SKIN: Without significant lesions. There is no rash. NEUROLOGIC: Examination is intact. She is nonfocal with normal mentation and good memory. DATABASE: Postoperative hematocrit this morning is approximately 33. Chemistries are within normal limits. Chest x-ray shows chest tubes to be in place and surgical changes on the left. There is a small apic al pneumothorax. The left lung is without significant infiltrates or evidence of heart failure. The re is a small area of atelectasis on the left. ASSESSMENT: 1. Left upper lobe lung cancer, status post resection. She is doing well postoperatively. She does have an air leak. Chest tubes are to suction. 2. Chronic obstructive pulmonary disease. This is mild. She has never been on any medications. Fo r this. As needed DuoNeb will be ordered. 3. History of other medical problems are as outlined above including hypertension, gastroesophageal reflux disease, etc. Problems are stable. Blood pressure is slightly low at this point in time. At enolol is being continued. PLAN AND RECOMMENDATIONS: Continued supportive care in the intensive care unit will be maintained. Laboratory and chest x-ray will be followed. Appropriate pain management will be maintained. Her [facility] outpatient medications will be continued. Further plans and recommendations will be made based on her progress over the next 12-24 hours. /[id number]/MODL
--- NOTE | 2017-06-01 18:55 | SOAPPROG ---
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
[2017-06-01] MEDS ORDERED: BISACODYL 10 MG SUPP PR PRN (19:17)
[2017-06-01] MEDS ORDERED: LACTULOSE 20 GM/30 ML UDCUP PO PRN (19:17)
[2017-06-01] MEDS ORDERED: NALOXONE HCL 0.4 MG/ML INJ IVP PRN (19:20)
[2017-06-01] MEDS ORDERED: HYDROmorphONE/DILAUDID 6 MG/30 ML PCA IV PRN (19:20)
[2017-06-01] MEDS: SENNOSIDES/DOCUSATE SODIUM TAB PO SCH (20:12)
[2017-06-02] MEDS: BUPIVACAINE 0.5% 30 ML SDV MISC SCH ×6 (02:15→22:04)
[2017-06-02] MEDS: NS W/ 20 KCl/L 1,000 ML IV SCH (06:41)
[2017-06-02] MEDS: KETOROLAC 15 MG/1 ML SDV IVP SCH (06:42)
[2017-06-02 06:52] LABS: % IMMATURE GRANULYOCYTES 0.3 % (0.0-1.1); ABSOLUTE IMMATURE GRANULOCYTES 0.03 10^3/uL (0.00-0.10); ADD DIFF? NO; ADD MORPH? NO; ADD SCAN? NO; ATYPICAL LYMPHOCYTE FLAG 0 (0-99); FRAGMENT RBC FLAG 0 (0-99); HEMATOCRIT 29.6 % (38.0-47.0); HEMOGLOBIN 9.8 g/dL (12.6-16.3); LEFT SHIFT FLG 0 (0-99); LIPEMIA HEMOLYSIS FLAG 80 (0-99); MEAN CELL HEMOGLOBIN 30.7 pg (27.9-34.1); MEAN CELL HEMOGLOBIN CONCENTR. 33.1 g/dL (32.4-36.7); MEAN CELL VOLUME 92.8 fL (81.5-99.8); MEAN PLATELET VOLUME 10.9 fL (8.7-11.7); PLATELET CLUMPS FLAG 20 (0-99); PLATELET COUNT 121 10^3/uL (150-400); RED BLOOD CELL COUNT 3.19 10^6/uL (4.18-5.33); RED CELL DISTRIBUTION WIDTH 13.6 % (11.5-15.2)
[2017-06-02 07:05] LABS: ANION GAP 5 mEq/L (8-16); CALCIUM 7.7 mg/dL (8.5-10.4); CARBON DIOXIDE 20 mEq/l (22-31); CHLORIDE 106 mEq/L (97-110); CREATININE 0.7 mg/dL (0.6-1.0); GLOMERULAR FILTRATION RATE > 60; GLUCOSE 102 mg/dL (70-100); POTASSIUM 5.3 mEq/L (3.5-5.2); SODIUM 131 mEq/L (134-144)
[2017-06-02] MEDS ORDERED: NS 1,000 ML IV SCH (07:30)
[2017-06-02] MEDS: ATENOLOL 50 MG TAB PO SCH ×2 (09:32→19:31)
[2017-06-02] MEDS ORDERED: IBUPROFEN SUSP 100 MG/5 ML UDCUP PO PRN ×2 (10:15→12:45)
--- NOTE | 2017-06-02 10:16 | SOAPPROG ---
SOAP Progress Note Assessment/Plan: Assessment: s/p Left upper lobectomy Large air leak COPD Hypertension History of breast cancer Dysphagia In C collar Neuro - Pain controlled - will dc toradol as increased risk of renal issues in elderly. Start motrin elixir prn. Tylenol. Dilaudid. marcaine catheter Resp - IS, cough, deep breath, continue chest tube to suction. No pneumo but increased sub Q emphysema Cards - Stable GI - Regular diet. Challenging because has baseline difficulty swallowing heme/ID - H/H stable Proph - Lovenox PT/OT Dispo - Step down unit is fine S: Pain controlled. Slept some. Difficulty swallowing O: Sitting up in bed, pleasant C collar in place Chest tube with large air leak. Minimal output since 0600 Sub Q emphysema on Left Lungs sounds coarse but good effort Regular rate Plan: 06/02/17 10:16 06/02/17 10:17 Objective: Vital Signs Temp Pulse Resp BP Pulse Ox 36.2 C 60 16 105/56 L 100 06/02/17 08:00 06/02/17 08:00 06/02/17 08:00 06/02/17 08:00 06/02/17 08:00 Laboratory Results 06/02/17 06:35 06/02/17 06:35 06/01/17 06/02/17 06/03/17 05:59 05:59 05:59 Intake Total 2284 3577.8 Output Total 2225 1377 170 Balance 59 2200.8 -170 ICD10 Worksheet Patient Problems: Problems Problem Status Onset Primary localized osteoarthritis of left knee Acute
[2017-06-02] MEDS: ENOXAPARIN 40 MG/0.4 ML SYR SC SCH (10:22)
[2017-06-02] MEDS: PANTOPRAZOLE SODIUM 40 MG TAB PO SCH (11:02)
[2017-06-02] MEDS: TRIAMTERENE/HCTZ 37.5/25 1 EACH CAP PO SCH (11:04)
[2017-06-02] MEDS: CETIRIZINE 10 MG TAB PO SCH (11:04)
[2017-06-02] MEDS: METHENAMINE HIPP 1 GM TAB PO SCH ×2 (11:06→19:32)
[2017-06-02] MEDS: TAMOXIFEN CITRATE 10 MG TAB PO SCH (11:09)
[2017-06-02] MEDS: SENNOSIDES/DOCUSATE SODIUM TAB PO SCH ×2 (11:11→19:31)
--- NOTE | 2017-06-02 11:26 | PDINTPN ---
Setter Cold Rolling Machine Progress Note Assessment/Plan: Assessment: Lung cancer, status post left upper lobectomy. Doing well postoperatively. Chest tubes in place, air leak improving. Mild COPD with some reversibility Acute blood-loss anemia: Hematocrit 29. Follow. Confusion: Better in the day. Multifactorial. Secondary to age, surgery, medications (PATHOLOGY SUPERVISOR and Precedex), , etc. Hyponatremia: Sodium 131. Follow. Fluids in normal saline were possible. DVT prophylaxis: Enoxaparin. GI prophylaxis: None indicated, eating. Plan: Continue present care in the intensive care unit. Change status to step- down unit. Continue pain management, CTs to suction. Decreased Precedex as tolerated. Increase activity as tolerated. Follow laboratory, chest x-ray Subjective: Up in chair. Complains of some chest pain. Confused yesterday, better today. Objective: Vital Signs Temp Pulse Resp BP Pulse Ox 36.2 C 60 16 105/56 L 100 06/02/17 08:00 06/02/17 08:00 06/02/17 08:00 06/02/17 08:00 06/02/17 08:00 Laboratory Results 06/02/17 06:35 06/02/17 06:35 06/01/17 06/02/17 06/03/17 05:59 05:59 05:59 Intake Total 2284 3577.8 Output Total 2225 1377 170 Balance 59 2200.8 -170 CXR: Chest tubes in good position. Lung well expanded. No obvious pneumothorax. Increased subcu air. Physical Exam - Physical Exam General Appearance: alert, no apparent distress, other (In chair) EENT: PERRL/EOMI, other (Nasal cannula in place at 1 L) Neck: normal inspection (No JVD) Respiratory: lungs clear (On right), decreased breath sounds (On left with tube noises, rales), other (Chest tube in place,decreasing air leak present), No rhonchi, No wheezing Cardiac/Chest: regular rate, rhythm Abdomen: normal bowel sounds, non-tender, soft Pelvic Exam: other (Oropeza catheter in place. Input greater than output) Skin: warm/dry, pallor Extremities: No pedal edema Neuro/Psych: no motor/sensory deficits, No cognition abnormalities (Can be confused at times.) ICD10 Worksheet Patient Problems: Problems Problem Status Onset Primary localized osteoarthritis of left knee Acute
[2017-06-02] MEDS ORDERED: NALOXONE HCL 0.4 MG/ML INJ IVP PRN (13:14)
[2017-06-02] MEDS: diphenhydrAMINE 25 MG CAP PO PRN (13:50)
[2017-06-02] MEDS: HYDROmorphONE/DILAUDID 6 MG/30 ML PCA IV PRN (22:04)
[2017-06-03] MEDS: BUPIVACAINE 0.5% 30 ML SDV MISC SCH ×6 (03:29→22:05)
[2017-06-03 04:06] LABS: % IMMATURE GRANULYOCYTES 0.4 % (0.0-1.1); ABSOLUTE IMMATURE GRANULOCYTES 0.03 10^3/uL (0.00-0.10); ADD DIFF? NO; ADD MORPH? NO; ADD SCAN? NO; ATYPICAL LYMPHOCYTE FLAG 0 (0-99); FRAGMENT RBC FLAG 0 (0-99); HEMATOCRIT 23.7 % (38.0-47.0); LEFT SHIFT FLG 0 (0-99); LIPEMIA HEMOLYSIS FLAG 90 (0-99); MEAN CELL HEMOGLOBIN 31.5 pg (27.9-34.1); MEAN CELL HEMOGLOBIN CONCENTR. 33.8 g/dL (32.4-36.7); MEAN CELL VOLUME 93.3 fL (81.5-99.8); MEAN PLATELET VOLUME 10.7 fL (8.7-11.7); PLATELET CLUMPS FLAG 20 (0-99); PLATELET COUNT 121 10^3/uL (150-400); RED BLOOD CELL COUNT 2.54 10^6/uL (4.18-5.33); RED CELL DISTRIBUTION WIDTH 13.7 % (11.5-15.2)
[2017-06-03 05:05] LABS: HEMATOCRIT 29.1 % (38.0-47.0); HEMOGLOBIN 9.9 g/dL (12.6-16.3); MEAN CELL HEMOGLOBIN 31.2 pg (27.9-34.1); MEAN CELL VOLUME 91.8 fL (81.5-99.8); RED BLOOD CELL COUNT 3.17 10^6/uL (4.18-5.33); RED CELL DISTRIBUTION WIDTH 13.6 % (11.5-15.2)
[2017-06-03 05:16] LABS: ANION GAP 6 mEq/L (8-16); CALCIUM 7.8 mg/dL (8.5-10.4); CARBON DIOXIDE 26 mEq/l (22-31); CHLORIDE 102 mEq/L (97-110); CREATININE 0.6 mg/dL (0.6-1.0); GLOMERULAR FILTRATION RATE > 60; GLUCOSE 79 mg/dL (70-100); POTASSIUM 4.9 mEq/L (3.5-5.2); SODIUM 134 mEq/L (134-144)
[2017-06-03] MEDS: ENOXAPARIN 40 MG/0.4 ML SYR SC SCH (09:02)
[2017-06-03] MEDS: PANTOPRAZOLE SODIUM 40 MG TAB PO SCH (09:03)
[2017-06-03] MEDS: METHENAMINE HIPP 1 GM TAB PO SCH ×2 (09:03→20:59)
[2017-06-03] MEDS: ATENOLOL 50 MG TAB PO SCH ×2 (09:03→21:00)
[2017-06-03] MEDS: TRIAMTERENE/HCTZ 37.5/25 1 EACH CAP PO SCH (09:03)
[2017-06-03] MEDS: CETIRIZINE 10 MG TAB PO SCH (09:04)
[2017-06-03] MEDS: TAMOXIFEN CITRATE 10 MG TAB PO SCH (09:04)
--- NOTE | 2017-06-03 09:12 | SOAPPROG ---
SOAP Progress Note Assessment/Plan: Assessment: s/p Left upper lobectomy Air leak improving COPD Hypertension History of breast cancer Dysphagia In C collar Neuro - Pain controlled - will decrease basal rate and hopefully get off basal by end of the day. Started Oxy IR. Tylenol. Marcaine catheter Resp - IS, cough, deep breath, continue chest tube to suction. Still has air leak although improved from yesterday Cards - Stable GI - Regular diet. Challenging because has baseline difficulty swallowing heme/ID - H/H stable Proph - Lovenox PT/OT Dispo - Step down unit is fine S: Pain controlled. Slept some. Able to swallow pills today. Was only able to get to chair with max assist of 2 O: Sitting up in chair, appears weak C collar in place Chest tube with air leak. About 500 out in 24 hours Lungs sounds decreased in bases, not as good as effort as yesterday Regular rate Plan: 06/02/17 10:16 06/02/17 10:17 06/03/17 09:09 Objective: Vital Signs Temp Pulse Resp BP Pulse Ox 36.9 C 76 22 H 127/57 H 94 06/03/17 08:00 06/03/17 08:00 06/03/17 08:00 06/03/17 08:00 06/03/17 08:00 Laboratory Results 06/03/17 04:55 06/03/17 04:55 06/02/17 06/03/17 06/04/17 05:59 05:59 05:59 Intake Total 3577.8 1408.9 Output Total 1377 1970 Balance 2200.8 -561.1 ICD10 Worksheet Patient Problems: Problems Problem Status Onset Primary localized osteoarthritis of left knee Acute
[2017-06-03] MEDS: HYDROmorphONE/DILAUDID 6 MG/30 ML PCA IV PRN (10:57)
[2017-06-03] MEDS: SENNOSIDES/DOCUSATE SODIUM TAB PO SCH ×2 (11:01→21:00)
--- NOTE | 2017-06-03 11:45 | PDINTPN ---
Cell Lead Progress Note Assessment/Plan: Assessment: Lung cancer, status post left upper lobectomy. Doing well postoperatively. Chest tubes in place, air leak improving. Mild COPD with some reversibility Acute blood-loss anemia: Hematocrit 29, stable. Follow. Confusion: Better in the day. Multifactorial. Secondary to age, surgery, medications, sundowning, etc. Off Precedex Hyponatremia: Sodium 134, improved. Follow. Fluids in normal saline were possible. DVT prophylaxis: Enoxaparin. GI prophylaxis: None indicated, eating. Plan: Continue present care in the intensive care unit as step-down unit status. Continue pain management, CTs to suction. Increase activity as tolerated. Follow laboratory, chest x-ray intermittently. Subjective: Some confusion overnight, otherwise doing okay. Denies significant chest pain. Denies shortness of breath. Objective: Vital Signs Temp Pulse Resp BP Pulse Ox 36.9 C 76 22 H 127/57 H 94 06/03/17 08:00 06/03/17 08:00 06/03/17 08:00 06/03/17 08:00 06/03/17 08:00 Laboratory Results 06/03/17 04:55 06/03/17 04:55 06/02/17 06/03/17 06/04/17 05:59 05:59 05:59 Intake Total 3577.8 1408.9 Output Total 1377 1970 Balance 2200.8 -561.1 Physical Exam - Physical Exam General Appearance: alert, no apparent distress, thin, other (Up in chair) EENT: PERRL/EOMI, other (Nasal cannula in place at 2 L) Neck: normal inspection (No jugular venous distension) Respiratory: lungs clear (On right), decreased breath sounds (On left, with associated tube noises), other (Decreased subcu emphysema/crepitus on left) Cardiac/Chest: regular rate, rhythm, other (Chest tubes in place, decreasing air leak) Abdomen: normal bowel sounds, non-tender, soft Pelvic Exam: other (Oropeza catheter in place, good urine output) Skin: warm/dry, pallor Extremities: No pedal edema Neuro/Psych: no motor/sensory deficits, No cognition abnormalities ICD10 Worksheet Patient Problems: Problems Problem Status Onset Primary localized osteoarthritis of left knee Acute
--- NOTE | 2017-06-03 12:19 | ASMTCMCOM ---
CM Note CM Note Notes: Met with patient and her regarding physical therapy recommendation for SNF rehab. Patient agrees with the recommendtation. , Jeremie was given 3 places to review. He hopes to look them over this weekend and then will let CM know their decision on Tuesday. Patient expressed she has been to [facility] in the past and does not want to return there. [facility], [facility] and [facility] are the facilities they might be interested in. Referrals made to all 3 facilities. CM will need to check with the patient and her Tuesday for their decision. CM will follow. Date Signed: 06/03/2017 12:19 PM Electronically Signed By:Pao Huertas LCSW
--- NOTE | 2017-06-03 15:04 | GCON ---
[f rep st] CONSULTATION ONCOLOGY VISIT PRIMARY ONCOLOGIST: Dr. Una Garcias. 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 HISTORY OF PRESENT ILLNESS: The patient was recently diagnosed with a clinical stage I lung cancer. She was admitted to the hospital for left upper lobectomy, which was performed on the . Patholo gy is still pending. She is otherwise slowly recovering and doing well. She still has chest tubes i n, with some discomfort, but she denies any acute complaints. PAST MEDICAL HISTORY: She is allergic to nitrofurantoin. HOME MEDICATIONS: Included methocarbamol, Nexium, triamterene, hydrochlorothiazide with methenamine, mandelate, acetaminophen, cetirizine, tamoxifen, herbs and supplements, and atenolol. CHRONIC ILLNESSES: 1. Recently diagnosed lung cancer, squamous cell carcinoma, grade 2, clinically stage I. 2. Mild COPD. 3. Remote history of breast cancer, treated with resection, radiation, tamoxifen. 4. Hypertension. 5. GERD. SURGICAL HISTORY: Includes left upper lobectomy and lumpectomy for breast cancer. SOCIAL HISTORY: She is . Previous smoker. No history of significant alcohol. She was about a 30 pack year history of smoker, but quit at age 56. FAMILY HISTORY: Noncontributory. REVIEW OF SYSTEMS: A 10-point review of systems performed, pertinent positives in the HPI, otherwise negative. PHYSICAL EXAMINATION: VITAL SIGNS: Temperature is 36.5, pulse is 72, blood pressure 123/63. GENERAL: She is an elderly woman, lying comfortably, in no distress. HEENT: Unremarkable. LUNGS: Clear on the right, with some decrease on the left, and some mild adventitious sounds were related t o the tubes. CARDIAC: Regular. ABDOMEN: Soft. Bowel sounds are positive. NEUROLOGICAL: No foca l deficits. Pathology is still pending. Preop PET scan showed no metastatic disease. Preop biopsy showed invasi ve moderately differentiated squamous cell carcinoma in the left upper lobe. Preop PFT showed FVC of 2.9, FEV1 of 1.59. CBC shows mild anemia, 9.9. Chemistries unremarkable. IMPRESSION: 1. Clinically stage lung cancer, status post left upper lobectomy. Final path is pending. 2. History of breast cancer. 3. Mild chronic obstructive pulmonary disease. She seems to be recovering well postoperatively and further management will be by Critical Care and S urgery. We will follow along remotely until path is back, and then we can discuss the final path, an d if any further recommendations or interventions are necessary. Most likely, with her age, if it co nfirms a clinical stage I, she will not benefit from further therapy. /[id number]/MODL
[2017-06-03] MEDS: diphenhydrAMINE 25 MG CAP PO PRN (15:15)
[2017-06-03] MEDS ORDERED: HYDROCORTISONE 1% CREAM TP PRN (17:42)
[2017-06-03] MEDS: oxyCODONE IR 5 MG TAB PO PRN (17:55)
[2017-06-04] MEDS: oxyCODONE IR 5 MG TAB PO PRN ×2 (00:52→05:46)
[2017-06-04] MEDS: HYDROmorphone HCL/NS/PF 0.4 MG/2 ML SYR IVP PRN ×3 (00:53→08:55)
[2017-06-04] MEDS: BUPIVACAINE 0.5% 30 ML SDV MISC SCH ×6 (03:36→22:33)
[2017-06-04] MEDS: SENNOSIDES/DOCUSATE SODIUM TAB PO SCH ×2 (08:58→20:10)
[2017-06-04] MEDS: TRIAMTERENE/HCTZ 37.5/25 1 EACH CAP PO SCH (08:58)
[2017-06-04] MEDS: ATENOLOL 50 MG TAB PO SCH ×2 (08:58→20:10)
[2017-06-04] MEDS: CETIRIZINE 10 MG TAB PO SCH (08:58)
[2017-06-04] MEDS: TAMOXIFEN CITRATE 10 MG TAB PO SCH (08:58)
[2017-06-04] MEDS: ENOXAPARIN 40 MG/0.4 ML SYR SC SCH (08:59)
[2017-06-04] MEDS: METHENAMINE HIPP 1 GM TAB PO SCH ×2 (08:59→20:19)
[2017-06-04] MEDS: PANTOPRAZOLE SODIUM 40 MG TAB PO SCH (08:59)
[2017-06-04] MEDS ORDERED: KETOROLAC 30 MG/1 ML SDV IVP ONE (10:12)
--- NOTE | 2017-06-04 11:55 | PDINTPN ---
Office Analyst Progress Note Assessment/Plan: Assessment: Lung cancer, status post left upper lobectomy. Doing well postoperatively. Chest tubes in place, air leak remains present. Significant pleuritic chest pain remains present. Mild COPD with some reversibility Acute blood-loss anemia: Hematocrit 29, stable. Follow. Confusion: Better in the day. Multifactorial. Secondary to age, surgery, medications, sundowning, etc. Off Precedex Hyponatremia: Sodium 134, improved. Follow. Fluids in normal saline were possible. DVT prophylaxis: Enoxaparin. GI prophylaxis: Pantoprazole. Plan: Continue present care in the intensive care unit on step-down. Will try Toradol, continue pain management otherwise including bupivacaine. Continue CTs to suction. Increase activity as tolerated. DC Oropeza catheter once she is more mobile. Follow laboratory, chest x-ray intermittently. 25 minutes of critical care time spent directly with the patient. Discussed with the patient and her , nursing, and the ICU multi disciplinary team. Subjective: Had chest pain overnight, better today. Confused at times. Objective: Vital Signs Temp Pulse Resp BP Pulse Ox 37.2 C 72 22 H 140/69 H 97 06/04/17 07:40 06/04/17 08:58 06/04/17 07:40 06/04/17 08:58 06/04/17 07:40 Laboratory Results 06/03/17 04:55 06/03/17 04:55 06/03/17 06/04/17 06/05/17 05:59 05:59 05:59 Intake Total 1408.9 1316 Output Total 1970 2795 Balance -561.1 -1479 CXR: No significant changes. L chest tubes, elevated left diaphragm persist. No obvious congestive heart failure or pneumonia. No pneumothorax. Subcu air present. Physical Exam - Physical Exam General Appearance: alert, no apparent distress EENT: PERRL/EOMI, other (Nasal cannula at 2 L) Neck: normal inspection (No JVD) Respiratory: lungs clear (On the right side), decreased breath sounds (On left, tube noises), other (Crepitus present on the left), No rhonchi, No wheezing Cardiac/Chest: regular rate, rhythm, other (Chest tubes in place, relatively large air leak persists) Abdomen: normal bowel sounds, non-tender, soft, other (Oropeza catheter in place, good urine output) Pelvic Exam: other Skin: warm/dry, pallor Extremities: No pedal edema Neuro/Psych: no motor/sensory deficits, No cognition abnormalities ICD10 Worksheet Patient Problems: Problems Problem Status Onset Primary localized osteoarthritis of left knee Acute
--- NOTE | 2017-06-04 11:59 | SOAPPROG ---
SOAP Progress Note Assessment/Plan: Assessment: s/p Left upper lobectomy Air leak stable COPD Hypertension History of breast cancer Dysphagia In C collar Neuro - Pain controlled - off basal. Po pain meds and prn IV. Tylenol. Marcaine catheter. I do not think scheduled Toradol is appropriate for her as she is 82 years old and there is a relationship with renal insufficiency even in patients without a history. Liquid Motrin if needed. Monitor confusion Resp - IS, cough, deep breath, continue chest tubes to suction. Still has air leak Cards - Stable GI - Regular diet. Eating is improved heme/ID - H/H stable Proph - Lovenox PT/OT Dispo - MS S: Pain controlled. Some confusion but overall feeling better. More successful with PT and OT today. O: Sitting up in chair, appears stronger C collar in place Chest tube with air leak. About 400 out in 24 hours Lungs sounds decreased in bases, good effort today Incision CDI Regular rate Plan: 06/02/17 10:16 06/02/17 10:17 06/03/17 09:09 06/04/17 11:56 Objective: Vital Signs Temp Pulse Resp BP Pulse Ox 37.2 C 72 22 H 140/69 H 97 06/04/17 07:40 06/04/17 08:58 06/04/17 07:40 06/04/17 08:58 06/04/17 07:40 Laboratory Results 06/03/17 04:55 06/03/17 04:55 06/03/17 06/04/17 06/05/17 05:59 05:59 05:59 Intake Total 1408.9 1316 Output Total 7335 2795 Balance -561.1 -1479 ICD10 Worksheet Patient Problems: Problems Problem Status Onset Primary localized osteoarthritis of left knee Acute
[2017-06-04] MEDS ORDERED: KETOROLAC 15 MG/1 ML SDV IVP SCH (18:00)
[2017-06-05] MEDS: BUPIVACAINE 0.5% 30 ML SDV MISC SCH ×6 (01:59→21:51)
[2017-06-05] MEDS: oxyCODONE IR 5 MG TAB PO PRN ×5 (04:55→21:50)
[2017-06-05 05:05] LABS: HEMATOCRIT 33.8 % (38.0-47.0); HEMOGLOBIN 11.7 g/dL (12.6-16.3)
[2017-06-05 05:16] LABS: ANION GAP 10 mEq/L (8-16); CARBON DIOXIDE 25 mEq/l (22-31); CHLORIDE 95 mEq/L (97-110); CREATININE 0.6 mg/dL (0.6-1.0); GLOMERULAR FILTRATION RATE > 60; GLUCOSE 117 mg/dL (70-100); POTASSIUM 4.4 mEq/L (3.5-5.2); SODIUM 130 mEq/L (134-144)
[2017-06-05] MEDS: SENNOSIDES/DOCUSATE SODIUM TAB PO SCH ×2 (07:59→19:55)
--- NOTE | 2017-06-05 09:54 | SOAPPROG ---
SOAP Progress Note Assessment/Plan: Assessment: s/p Left upper lobectomy Air leak stable COPD Hypertension History of breast cancer Dysphagia In C collar Neuro - Pain controlled - Po pain meds and prn IV. Tylenol. Marcaine catheter. Liquid Motrin if needed. Monitor confusion Resp - IS, cough, deep breath, continue chest tubes to suction. Still has air leak improved Cards - Stable GI - Regular diet. Eating is improved heme/ID - H/H stable Proph - Lovenox PT/OT Dispo - MS S: Pain controlled. Weak but overall feeling better. More successful with PT and OT today. O: Sitting up in chair, appears stronger C collar in place Chest tube with air leak. Lungs sounds decreased in bases, good effort today Incision CDI Regular rate Plan: 06/02/17 10:16 06/02/17 10:17 06/03/17 09:09 06/04/17 11:56 06/05/17 09:53 Objective: Vital Signs Temp Pulse Resp BP Pulse Ox 36.8 C 70 16 151/90 H 93 06/05/17 07:30 06/05/17 07:30 06/05/17 07:30 06/05/17 07:30 06/05/17 07:30 Laboratory Results 06/05/17 04:55 06/05/17 04:55 06/04/17 06/05/17 06/06/17 05:59 05:59 05:59 Intake Total 1316 200 Output Total 8211 256 Uqreuwb -4481 -417 ICD10 Worksheet Patient Problems: Problems Problem Status Onset Primary localized osteoarthritis of left knee Acute
[2017-06-05] MEDS: ATENOLOL 50 MG TAB PO SCH ×2 (10:36→19:46)
[2017-06-05] MEDS: CETIRIZINE 10 MG TAB PO SCH (10:37)
[2017-06-05] MEDS: TRIAMTERENE/HCTZ 37.5/25 1 EACH CAP PO SCH (10:37)
[2017-06-05] MEDS: PANTOPRAZOLE SODIUM 40 MG TAB PO SCH (10:37)
[2017-06-05] MEDS: ENOXAPARIN 40 MG/0.4 ML SYR SC SCH (10:37)
[2017-06-05] MEDS: METHENAMINE HIPP 1 GM TAB PO SCH ×2 (11:05→19:45)
[2017-06-05] MEDS: TAMOXIFEN CITRATE 10 MG TAB PO SCH (11:06)
[2017-06-06] MEDS: oxyCODONE IR 5 MG TAB PO PRN ×6 (02:11→22:03)
[2017-06-06] MEDS: BUPIVACAINE 0.5% 30 ML SDV MISC SCH ×6 (02:11→22:06)
[2017-06-06] MEDS: TAMOXIFEN CITRATE 10 MG TAB PO SCH (08:42)
[2017-06-06] MEDS: METHENAMINE HIPP 1 GM TAB PO SCH ×2 (08:43→22:04)
[2017-06-06] MEDS: PANTOPRAZOLE SODIUM 40 MG TAB PO SCH (08:45)
[2017-06-06] MEDS: ATENOLOL 50 MG TAB PO SCH ×2 (08:45→22:01)
[2017-06-06] MEDS: TRIAMTERENE/HCTZ 37.5/25 1 EACH CAP PO SCH (08:45)
[2017-06-06] MEDS: CETIRIZINE 10 MG TAB PO SCH (08:46)
[2017-06-06] MEDS: ENOXAPARIN 40 MG/0.4 ML SYR SC SCH (08:46)
[2017-06-06] MEDS: SENNOSIDES/DOCUSATE SODIUM TAB PO SCH ×2 (09:26→22:03)
--- NOTE | 2017-06-06 10:05 | SOAPPROG ---
SOAP Progress Note Assessment/Plan: A/P: 82 Y F s/p thoracotomy c YUE lobectomy for lung CA. COPD Hypertension History of breast cancer Dysphagia In C collar, recent cervical spine surgery. Air leak still present but small. Continue to LWS. CXR ok. Wounds ok. Pain an issue but meds working. PT/OT. Dispo: possible rehab/snf once ready. Seen with Dr. Benavides. S: Pain controlled. No SOB. O: Sitting up in chair, appears stronger C collar in place Chest tube with air leak. Lungs sounds decreased in bases, good effort today Incision CDI Regular rate 06/06/17 10:02 Objective: Vital Signs Temp Pulse Resp BP Pulse Ox 36.8 C 70 16 149/90 H 91 L 06/06/17 07:35 06/06/17 08:45 06/06/17 07:35 06/06/17 08:45 06/06/17 07:35 Laboratory Results 06/05/17 04:55 06/05/17 04:55 06/05/17 06/06/17 06/07/17 05:59 05:59 05:59 Intake Total 200 250 Output Total 900 449 1 Ekxrexj -838 -951 249 ICD10 Worksheet Patient Problems: Problems Problem Status Onset Primary localized osteoarthritis of left knee Acute
--- NOTE | 2017-06-06 13:39 | SOAPPROG ---
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 Lung ca - doing well post op transferred out of ICU still w CT and has small air leak Will d/c to rehab when ready PT/OT Pain control Discussed pathology today and controversy surrounding Stage 1B lung ca - she does have some high risk features including visceral pleural involvement; in addition, only 2 LN sampled although lung ca can still recur in 40-50% of pts, survival benefit of adjuvant treatment in general considered small (5-7%) Will see how she continues to recover and will have her discuss further w Dr Garcias 2. other issues not active: Hx of breast cancer C-collar HTN dysphagia 06/06/17 13:39 Subjective: Sitting up in bed eating lunch denies pain Objective: Vital Signs Temp Pulse Resp BP Pulse Ox 36.8 C 76 16 119/64 93 06/06/17 12:00 06/06/17 12:00 06/06/17 12:00 06/06/17 12:00 06/06/17 12:00 Laboratory Results 06/05/17 04:55 06/05/17 04:55 06/05/17 06/06/17 06/07/17 05:59 05:59 05:59 Intake Total 200 250 Output Total 900 449 1 Balance -700 -449 249 Gen - NAD, C-collar HEENT - anicteric CV -RRR Chest - CT x 1 noted Ext - no sig edema ICD10 Worksheet Patient Problems: Problems Problem Status Onset Primary localized osteoarthritis of left knee Acute
--- NOTE | 2017-06-06 16:36 | ASMTCMCOM ---
CM Note CM Note Notes: Spoke with patient about discharge options. She would prefer [facility] but understands they rarely have bed availability. I sent them a referral and left a voicemail but never heard back. Patient will choose [facility] if [facility] is not an option. I let Alejandra @ [facility] know this, and she will be standing by. CM will follow. Date Signed: 06/06/2017 04:36 PM Electronically Signed By:Kimi Araiza RN
[2017-06-07] MEDS: BUPIVACAINE 0.5% 30 ML SDV MISC SCH ×6 (02:26→21:43)
[2017-06-07] MEDS: oxyCODONE IR 5 MG TAB PO PRN ×4 (02:34→16:55)
[2017-06-07] MEDS: SENNOSIDES/DOCUSATE SODIUM TAB PO SCH ×2 (09:39→21:37)
[2017-06-07] MEDS: TAMOXIFEN CITRATE 10 MG TAB PO SCH (09:42)
[2017-06-07] MEDS: PANTOPRAZOLE SODIUM 40 MG TAB PO SCH (09:42)
[2017-06-07] MEDS: CETIRIZINE 10 MG TAB PO SCH (09:42)
[2017-06-07] MEDS: ENOXAPARIN 40 MG/0.4 ML SYR SC SCH (09:43)
[2017-06-07] MEDS: METHENAMINE HIPP 1 GM TAB PO SCH ×2 (09:43→21:37)
[2017-06-07] MEDS: ATENOLOL 50 MG TAB PO SCH ×2 (10:00→21:38)
[2017-06-07] MEDS: TRIAMTERENE/HCTZ 37.5/25 1 EACH CAP PO SCH (10:00)
--- NOTE | 2017-06-07 10:57 | SOAPPROG ---
SOAP Progress Note Assessment/Plan: A/P: 82 Y F s/p thoracotomy c YUE lobectomy for lung CA. COPD Hypertension History of breast cancer Dysphagia In C collar, recent cervical spine surgery. Air leak still present but small. Continue to LWS. Change out dressings. Inspect chest tubes. Consider changing out pleurovac system to ensure not an external problem. CXR pending. Wounds ok. Pain an issue but meds working. PT/OT. Appreciate oncology input. Dispo: possible rehab/snf once ready. Seen with Dr. Benavides. S: Pain controlled. No SOB. O: Sitting up in chair, appears stronger C collar in place Chest tube with air leak. Lungs sounds decreased in bases, good effort today Incision CDI Regular rate 06/07/17 10:55 Objective: Vital Signs Temp Pulse Resp BP Pulse Ox 36.4 C 75 16 118/70 92 06/07/17 07:20 06/07/17 07:20 06/07/17 07:20 06/07/17 07:20 06/07/17 07:20 Laboratory Results 06/05/17 04:55 06/05/17 04:55 06/06/17 06/07/17 06/08/17 05:59 05:59 05:59 Intake Total 800 Output Total 449 201 Balance -449 599 ICD10 Worksheet Patient Problems: Problems Problem Status Onset Primary localized osteoarthritis of left knee Acute
--- NOTE | 2017-06-07 12:37 | ASMTCMCOM ---
CM Note CM Note Notes: Terrance with [facility] is assessing pt, Alejandra with [facility] reports pt looks fine clinically and they can accept unless pt will have cancer treatment in which case they would not be able to accept. Spoke w pt, son and who report [facility] is currently preference and it is too soon to know about any cancer treatment, pt wants to speak with oncologist and surgeon. CM to follow. Date Signed: 06/07/2017 12:37 PM Electronically Signed By:VANE Abernathy
--- NOTE | 2017-06-07 14:23 | ASMTCMCOM ---
CM Note CM Note Notes: [facility] with [facility] can accept pt and has some questions: 1. What is pt dysphagia from? 2. How long will pt have c collar? 3. Chest tube d/c yet? Pt moved to 1N Date Signed: 06/07/2017 02:22 PM Electronically Signed By:VANE Abernathy
[2017-06-07] MEDS: POLYETHYLENE GLYCOL 3350 17 GM PKT PO PRN (18:25)
[2017-06-08] MEDS: BUPIVACAINE 0.5% 30 ML SDV MISC SCH ×6 (03:00→23:45)
[2017-06-08] MEDS: oxyCODONE IR 5 MG TAB PO PRN ×2 (03:39→23:45)
[2017-06-08 06:17] LABS: ANION GAP 10 mEq/L (8-16); CALCIUM 9.1 mg/dL (8.5-10.4); CARBON DIOXIDE 25 mEq/l (22-31); CHLORIDE 95 mEq/L (97-110); CREATININE 0.7 mg/dL (0.6-1.0); GLOMERULAR FILTRATION RATE > 60; GLUCOSE 100 mg/dL (70-100); POTASSIUM 4.6 mEq/L (3.5-5.2); SODIUM 130 mEq/L (134-144)
[2017-06-08 08:37] LABS: COLOR YELLOW; LEUKOCYTE ESTERASE,URINE NEGATIVE (NEGATIVE); NITRITE,URINE NEGATIVE (NEGATIVE)
[2017-06-08 08:41] LABS: BACTERIA 1+ /hpf (NONE SEEN); MUCUS TRACE /lpf (NONE-1+); RBC,URINE 15-25 /hpf (0-3)
--- NOTE | 2017-06-08 10:28 | SOAPPROG ---
SOAP Progress Note Assessment/Plan: A/P: 82 Y F s/p thoracotomy c YUE lobectomy for lung CA. COPD Hypertension History of breast cancer Dysphagia In C collar, recent cervical spine surgery. Chest tube dressings and pleurovac changed out yesterday. Today there is a constant air leak. Reinspected chest tubes and there are no open chest tubes holes outside the chest wall. Suspect a problem in the pleurovac system and not true air leak from lung. . Will place chest tube to water seal and get chest xray later this afternoon. If lung stays expanded will leave to water seal and repeat xray in am. Dispo: possible snf tomorrow if cxr's stable and chest tube can be removed. D/w'ed with Dr. Benavides. D/w'ed RN. S: Pain controlled. No SOB. O: No complaints aside from pain, which has been difficult, but helped by pain meds. C collar in place Chest tube with air leak. Lungs sounds clear Incision CDI rrr 06/08/17 10:23 Objective: Vital Signs Temp Pulse Resp BP Pulse Ox 36.5 C 73 16 151/81 H 93 06/08/17 08:20 06/08/17 08:20 06/08/17 08:20 06/08/17 08:20 06/08/17 08:20 Laboratory Results 06/05/17 04:55 06/08/17 05:04 06/07/17 06/08/17 06/09/17 05:59 05:59 05:59 Intake Total 800 50 Output Total 201 50 130 Balance 599 0 -130 ICD10 Worksheet Patient Problems: Problems Problem Status Onset Primary localized osteoarthritis of left knee Acute
[2017-06-08] MEDS: TRIAMTERENE/HCTZ 37.5/25 1 EACH CAP PO SCH (11:17)
[2017-06-08] MEDS: SENNOSIDES/DOCUSATE SODIUM TAB PO SCH ×2 (11:18→20:05)
[2017-06-08] MEDS: PANTOPRAZOLE SODIUM 40 MG TAB PO SCH (11:18)
[2017-06-08] MEDS: ATENOLOL 50 MG TAB PO SCH ×2 (11:19→20:05)
[2017-06-08] MEDS: TAMOXIFEN CITRATE 10 MG TAB PO SCH (11:19)
[2017-06-08] MEDS: CETIRIZINE 10 MG TAB PO SCH (11:19)
[2017-06-08] MEDS: ENOXAPARIN 40 MG/0.4 ML SYR SC SCH (11:30)
[2017-06-08] MEDS: METHENAMINE HIPP 1 GM TAB PO SCH ×2 (11:32→20:06)
--- NOTE | 2017-06-08 16:36 | ASMTCMCOM ---
CM Note CM Note Notes: [facility] pt. All of their questions were answered except for when the C-Collar will come off. Faxed [facility] the [facility]. C/M will continue to follow. Date Signed: 06/08/2017 04:35 PM Electronically Signed By:Kendra Berry LCSW
--- NOTE | 2017-06-08 17:52 | SOAPPROG ---
SOAP Progress Note Assessment/Plan: Assessment: ALERT, COMFORTABLE/ AFEBRILE/LARGE AIR LEAK/ MODERATE CT OUTPUT DOING QUITE WELL Plan:CONTINUE MONITOR IN ICU 06/01/17 09:45 06/01/17 18:53 Doing very well status post left upper lobectomy/afebrile/chest x-ray clear/ moderate air leak but minimal drainage/wound okay Main issues adequate pain control but she is quite alert and breathing well/has been on off Precedex drip/will start continuous PROFESSOR OF MECHANICAL ENGINEERING Dilaudid at 1 mm/ Path pending 06/08/17 17:51 CHEST X-RAY STABLE OF SUCTION/CHEST TUBE DRAINAGE MINIMAL/VITAL SIGNS STABLE/ HOPEFULLY CHEST TUBES OUT IN THE A.M. Objective: Vital Signs Temp Pulse Resp BP Pulse Ox 36.6 C 84 16 130/72 H 95 06/08/17 15:20 06/08/17 15:20 06/08/17 15:20 06/08/17 15:20 06/08/17 15:20 Laboratory Results 06/05/17 04:55 06/08/17 05:04 06/07/17 06/08/17 06/09/17 05:59 05:59 05:59 Intake Total 800 50 720 Output Total 201 50 130 Balance 599 0 590 ICD10 Worksheet Patient Problems: Problems Problem Status Onset Primary localized osteoarthritis of left knee Acute
[2017-06-08] MEDS: POLYETHYLENE GLYCOL 3350 17 GM PKT PO PRN (20:10)
[2017-06-09] MEDS: oxyCODONE IR 5 MG TAB PO PRN ×5 (01:11→23:27)
[2017-06-09] MEDS: BUPIVACAINE 0.5% 30 ML SDV MISC SCH ×6 (03:31→20:47)
[2017-06-09] MEDS: SENNOSIDES/DOCUSATE SODIUM TAB PO SCH ×2 (09:00→20:49)
[2017-06-09] MEDS: TAMOXIFEN CITRATE 10 MG TAB PO SCH (09:04)
[2017-06-09] MEDS: PANTOPRAZOLE SODIUM 40 MG TAB PO SCH (09:04)
[2017-06-09] MEDS: ATENOLOL 50 MG TAB PO SCH ×2 (09:05→20:48)
[2017-06-09] MEDS: CETIRIZINE 10 MG TAB PO SCH (09:05)
[2017-06-09] MEDS: TRIAMTERENE/HCTZ 37.5/25 1 EACH CAP PO SCH (09:05)
[2017-06-09] MEDS: MAGNESIUM HYDROXIDE 30 ML UDCUP PO PRN (09:06)
[2017-06-09] MEDS: METHENAMINE HIPP 1 GM TAB PO SCH ×2 (09:06→20:49)
[2017-06-09] MEDS: ENOXAPARIN 40 MG/0.4 ML SYR SC SCH (09:07)
--- NOTE | 2017-06-09 10:49 | SOAPPROG ---
SOAP Progress Note Assessment/Plan: Assessment: 82-year-old female status post left lobectomy, thoracotomy for lung cancer, now with persistent air leak. Feel better today overall, no shortness of breath, pain well controlled, tolerating regular diet Physical exam Alert, cervical collar in place Chest CTA bilaterally Abdomen soft nontender Chest tube output 170 cc over 24 hours, not 270 as recorded Chest x-ray trace pneumothorax Plan: Given persistent air leak chest tubes remain in place, not on suction Patient seen examined by Dr. Benavides 06/09/17 10:47 Objective: Vital Signs Temp Pulse Resp BP Pulse Ox 37 C 72 20 132/73 H 98 06/09/17 06:49 06/09/17 09:05 06/09/17 08:58 06/09/17 09:05 06/09/17 08:58 Laboratory Results 06/05/17 04:55 06/08/17 05:04 06/08/17 06/09/17 06/10/17 05:59 05:59 05:59 Intake Total 50 1020 Output Total 50 732 Balance 0 288 ICD10 Worksheet Patient Problems: Problems Problem Status Onset Primary localized osteoarthritis of left knee Acute
[2017-06-10] MEDS: BUPIVACAINE 0.5% 30 ML SDV MISC SCH ×5 (02:01→18:16)
[2017-06-10] MEDS: oxyCODONE IR 5 MG TAB PO PRN ×2 (06:01→22:00)
--- NOTE | 2017-06-10 07:51 | SOAPPROG ---
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 06/10/17 07:50 AFEBRILE/ VS STABLE/ UO GOOD/ CT DRAINAGE DECREASED/ DECREASED AIR LEAK/ TO REHAB SOON Objective: Vital Signs Temp Pulse Resp BP Pulse Ox 36.7 C 74 18 116/66 90 L 06/10/17 07:48 06/10/17 07:48 06/10/17 07:48 06/10/17 07:48 06/10/17 07:48 Laboratory Results 06/05/17 04:55 06/08/17 05:04 06/09/17 06/10/17 06/11/17 05:59 05:59 05:59 Intake Total 1020 1160 Output Total 732 670 Balance 288 490 ICD10 Worksheet Patient Problems: Problems Problem Status Onset Primary localized osteoarthritis of left knee Acute
[2017-06-10] MEDS: TAMOXIFEN CITRATE 10 MG TAB PO SCH (08:55)
[2017-06-10] MEDS: METHENAMINE HIPP 1 GM TAB PO SCH ×2 (08:55→22:00)
[2017-06-10] MEDS: SENNOSIDES/DOCUSATE SODIUM TAB PO SCH ×2 (08:56→22:01)
[2017-06-10] MEDS: ATENOLOL 50 MG TAB PO SCH ×2 (08:57→21:59)
[2017-06-10] MEDS: PANTOPRAZOLE SODIUM 40 MG TAB PO SCH (08:57)
[2017-06-10] MEDS: ENOXAPARIN 40 MG/0.4 ML SYR SC SCH (08:58)
[2017-06-10] MEDS: TRIAMTERENE/HCTZ 37.5/25 1 EACH CAP PO SCH (08:58)
[2017-06-10] MEDS: MAGNESIUM HYDROXIDE 30 ML UDCUP PO PRN (08:58)
[2017-06-10] MEDS: CETIRIZINE 10 MG TAB PO SCH (08:58)
[2017-06-10] MEDS: ACETAMINOPHEN 325 MG TAB PO PRN (14:47)
[2017-06-11] MEDS: BUPIVACAINE 0.5% 30 ML SDV MISC SCH ×7 (01:16→22:15)
[2017-06-11] MEDS: diphenhydrAMINE 25 MG CAP PO PRN (01:18)
[2017-06-11] MEDS: oxyCODONE IR 5 MG TAB PO PRN ×5 (02:33→22:53)
[2017-06-11] MEDS: METHENAMINE HIPP 1 GM TAB PO SCH ×2 (08:18→22:15)
[2017-06-11] MEDS: SENNOSIDES/DOCUSATE SODIUM TAB PO SCH ×2 (08:19→22:15)
[2017-06-11] MEDS: ATENOLOL 50 MG TAB PO SCH (08:19)
[2017-06-11] MEDS: TAMOXIFEN CITRATE 10 MG TAB PO SCH (08:19)
[2017-06-11] MEDS: ACETAMINOPHEN 325 MG TAB PO PRN ×3 (08:19→17:30)
[2017-06-11] MEDS: PANTOPRAZOLE SODIUM 40 MG TAB PO SCH (08:19)
[2017-06-11] MEDS: CETIRIZINE 10 MG TAB PO SCH (08:20)
[2017-06-11] MEDS: TRIAMTERENE/HCTZ 37.5/25 1 EACH CAP PO SCH (08:20)
[2017-06-11] MEDS: ENOXAPARIN 40 MG/0.4 ML SYR SC SCH (08:25)
--- NOTE | 2017-06-11 11:41 | SOAPPROG ---
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 06/10/17 07:50 AFEBRILE/ VS STABLE/ UO GOOD/ CT DRAINAGE DECREASED/ DECREASED AIR LEAK/ TO REHAB SOON 06/11/17 11:40 AFEBRILE/VITAL SIGNS STABLE/DRAINAGE SEROUS IN DECREASED/NO AIR LEAK TODAY/ WOUND OKAY PLAN IS DC CHEST TUBES IN THE A.M. PROBABLE REHAB ON TUESDAY Objective: Vital Signs Temp Pulse Resp BP Pulse Ox 36.5 C 68 16 104/58 L 95 06/11/17 09:40 06/11/17 09:40 06/11/17 09:40 06/11/17 09:40 06/11/17 09:40 Laboratory Results 06/05/17 04:55 06/08/17 05:04 06/10/17 06/11/17 06/12/17 05:59 05:59 05:59 Intake Total 1160 150 Output Total 670 631 Balance 490 -481 ICD10 Worksheet Patient Problems: Problems Problem Status Onset Primary localized osteoarthritis of left knee Acute
--- NOTE | 2017-06-11 16:30 | ASMTCMCOM ---
CM Note CM Note Notes: Spoke with Nathaniel at [facility] who said that they will have a bed for patient on Tuesday. They require that patient must have had chest tube out for 24 hours before she is accepted to the SNF. Dr. Benavides said if we have the SNF for Tuesday he will remove the chest tube on Tuesday. Patients nurse Serenity notified and Charge nurse informed. Case Management will follow. Date Signed: 06/11/2017 04:29 PM Electronically Signed By:VANE London
[2017-06-12] MEDS: ATENOLOL 50 MG TAB PO SCH ×3 (01:08→21:22)
[2017-06-12] MEDS: BUPIVACAINE 0.5% 30 ML SDV MISC SCH ×4 (01:35→15:04)
[2017-06-12] MEDS: oxyCODONE IR 5 MG TAB PO PRN ×4 (06:56→21:22)
[2017-06-12] MEDS: ACETAMINOPHEN 325 MG TAB PO PRN ×3 (06:56→21:22)
[2017-06-12] MEDS: METHENAMINE HIPP 1 GM TAB PO SCH ×2 (09:53→21:23)
[2017-06-12] MEDS: PHENAZOPYRIDINE HCL 200 MG TAB PO PRN ×3 (09:53→21:23)
[2017-06-12] MEDS: SENNOSIDES/DOCUSATE SODIUM TAB PO SCH ×2 (09:53→21:22)
[2017-06-12] MEDS: TAMOXIFEN CITRATE 10 MG TAB PO SCH (09:53)
[2017-06-12] MEDS: PANTOPRAZOLE SODIUM 40 MG TAB PO SCH (09:54)
[2017-06-12] MEDS: CETIRIZINE 10 MG TAB PO SCH (09:54)
[2017-06-12] MEDS: ENOXAPARIN 40 MG/0.4 ML SYR SC SCH (10:01)
[2017-06-12] MEDS: TRIAMTERENE/HCTZ 37.5/25 1 EACH CAP PO SCH (12:03)
--- NOTE | 2017-06-12 16:30 | SOAPPROG ---
SOAP Progress Note Assessment/Plan: Assessment: ALERT, COMFORTABLE/ AFEBRILE/LARGE AIR LEAK/ MODERATE CT OUTPUT DOING QUITE WELL Plan:CONTINUE MONITOR IN ICU 06/01/17 09:45 06/01/17 18:53 Doing very well status post left upper lobectomy/afebrile/chest x-ray clear/ moderate air leak but minimal drainage/wound okay Main issues adequate pain control but she is quite alert and breathing well/has been on off Precedex drip/will start continuous PIPER HELPER Dilaudid at 1 mm/ Path pending 06/08/17 17:51 CHEST X-RAY STABLE OF SUCTION/CHEST TUBE DRAINAGE MINIMAL/VITAL SIGNS STABLE/ HOPEFULLY CHEST TUBES OUT IN THE A.M. 06/10/17 07:50 AFEBRILE/ VS STABLE/ UO GOOD/ CT DRAINAGE DECREASED/ DECREASED AIR LEAK/ TO REHAB SOON 06/11/17 11:40 AFEBRILE/VITAL SIGNS STABLE/DRAINAGE SEROUS IN DECREASED/NO AIR LEAK TODAY/ WOUND OKAY PLAN IS DC CHEST TUBES IN THE A.M. PROBABLE REHAB ON Tuesday06/12/17 16:29 VITAL SIGNS STABLE/AFEBRILE/BREATH SOUNDS EQUAL/CHEST TUBE DRAINAGE DECREASED/ NO AIR LEAK PLAN IS DC CHEST TUBE TODAY, TRANSFER TO REHAB TOMORROW Objective: Vital Signs Temp Pulse Resp BP Pulse Ox 36.5 C 80 16 88/60 L 94 06/12/17 14:11 06/12/17 14:11 06/12/17 14:11 06/12/17 14:11 06/12/17 14:11 Microbiology 06/08/17 08:19 Urine Culture - Final Urine,Clean Catch Escherichia Coli Laboratory Results 06/05/17 04:55 06/08/17 05:04 06/11/17 06/12/17 06/13/17 05:59 05:59 05:59 Intake Total 150 600 Output Total 591 730 Balance -481 -130 ICD10 Worksheet Patient Problems: Problems Problem Status Onset Primary localized osteoarthritis of left knee Acute
[2017-06-12] MEDS: diphenhydrAMINE 25 MG CAP PO PRN (21:23)
[2017-06-13] MEDS: PHENAZOPYRIDINE HCL 200 MG TAB PO PRN ×2 (00:42→10:56)
[2017-06-13] MEDS: diphenhydrAMINE 25 MG CAP PO PRN (00:43)
[2017-06-13] MEDS: oxyCODONE IR 5 MG TAB PO PRN (00:43)
--- NOTE | 2017-06-13 09:48 | PDIAF ---
- Diagnosis Diagnosis: lung cancer, s/p lobectomy. also recent cervical spine surgery. Code Status: Full Code - Medication Management Discharge Medications: Medications to Continue on Transfer Atenolol [Tenormin 50 mg (*)] 50 mg PO BID 05/23/16 [Last Taken 05/31/17 07:00] Cetirizine [ZyrTEC 10 mg (*)] 10 mg PO DAILY 05/23/16 [Last Taken 05/31/17 07:00 ] Tamoxifen Citrate 20 mg PO DAILY 05/23/16 [Last Taken 05/31/17 07:00] Triamterene/Hydrochlorothiazid [Triamterene-Hctz 37.5-25 mg Cp] 1 each PO DAILY 05/23/16 [Last Taken 05/30/17 20:00] Herbals/Supplements -Info Only 1 each PO DAILY 04/04/17 [Last Taken 05/30/17 08: 00] Methenamine Mandelate [METHENAMINE MANDELATE] 500 mg PO BID 04/06/17 [Last Taken 05/31/17 07:00] Esomeprazole Mag Trihydrate [Nexium] 40 mg PO DAILY 05/10/17 [Last Taken ] Acetaminophen [Tylenol ES 500 mg (*)] 1,000 mg PO Q8HRS PRN 05/30/17 [Last Taken 05/31/17 07:30] Methocarbamol [Robaxin 750 mg (*)] 750 mg PO DAILY PRN 05/30/17 [Last Taken ] oxyCODONE IR [Oxycodone Ir (*)] 5 - 15 mg PO Q4HRS PRN #40 tab 06/13/17 [Last Taken Unknown] Discharge Medications: Refer to the Discharge Home Medication list for PRN reason. PICC Care - Routine: N/A - Orders Services needed: Registered Nurse, Physical Therapy, Occupational Therapy Isolation Type: Chemotherapy Isolation Diet Recommendation: no restrictions on diet Diet Texture: Regular Texture Diet Oropeza: No Wound Care Instructions: Avoid lifting, pushing, or pulling greater than 20 lbs. Ok to shower. You will need to replace a dressing (may use a vaseline gauze and/or antibiotic ointment and gauze) over your chest tube site daily until it is healed. Sutures/Kristy Site: Avoid lifting, pushing, or pulling greater than 20 lbs. Ok to shower. You will need to replace a dressing (may use a vaseline gauze and/ or antibiotic ointment and gauze) over your chest tube site daily until it is healed. Activity/Weight Bearing Restrictions: Avoid lifting, pushing, or pulling greater than 20 lbs. Ok to shower. You will need to replace a dressing (may use a vaseline gauze and/or antibiotic ointment and gauze) over your chest tube site daily until it is healed. - Follow Up Care Current Providers and Referrals: Krystal Yarbrough MD [Primary Care Provider] - Carlton Benavides MD [Medical Doctor] - (1-2 weeks. please tell the office that you will need a chest xray for your post op appt and they will give you special instructions.)
[2017-06-13] MEDS: TAMOXIFEN CITRATE 10 MG TAB PO SCH (10:55)
[2017-06-13] MEDS: METHENAMINE HIPP 1 GM TAB PO SCH (10:55)
[2017-06-13] MEDS: SENNOSIDES/DOCUSATE SODIUM TAB PO SCH (10:56)
[2017-06-13] MEDS: CETIRIZINE 10 MG TAB PO SCH (10:56)
[2017-06-13] MEDS: TRIAMTERENE/HCTZ 37.5/25 1 EACH CAP PO SCH (10:56)
[2017-06-13] MEDS: PANTOPRAZOLE SODIUM 40 MG TAB PO SCH (10:56)
[2017-06-13] MEDS: ENOXAPARIN 40 MG/0.4 ML SYR SC SCH (10:57)
[2017-06-13] MEDS: ATENOLOL 50 MG TAB PO SCH (12:11)
[2017-06-13 12:39] VITALS: BP 123/64; PULSE 78; RESP 20; TEMP 98.2; O2SAT 93
--- NOTE | 2017-06-13 14:53 | GDS ---
[f rep st] DISCHARGE SUMMARY DISCHARGE DIAGNOSES: 1. 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 2. Other diagnoses include chronic obstructive pulmonary disease, remote 40 year history of tobacco use, history of breast cancer. Hypertension, gastroesophageal reflux disease. PROCEDURES: Exploratory video-assisted thoracoscopic surgery with left thoracotomy and left upper lo be. INTRAOPERATIVE FINDINGS: Patient was found to have a tumor in the specimen. Bronchial margins were confirmed clear by Pathology. CONSULTATIONS: 1. Gene Gordon MD, Pulmonology/Miniature Model Maker. 2. Magnolia Rasmussen MD, Oncology. HOSPITAL COURSE: The patient is an 82-year-old female who was brought to the operating room by Dr. Marcelo luna for a left upper lobectomy for needle biopsy-proven lung cancer. The procedure was uncomplicate d, and she tolerated it well. Two chest tubes were placed intraoperatively. She was initially cared for in the ICU per routine. Patient's postoperative course was complicated by pain control issues and a prolonged air leak. She was followed by the Miniature Model Maker in ICU. She was on and off of a Precedex drip and eventually transit ioned to IV pain medicines then oral pain medicines. As mentioned above, she had a persistent air le ak. Chest tubes were examined closely and Pleur-Evac system was exchanged. Ultimately, we decided t o place her chest tubes to water seal and follow up with x-rays. Eventually, her tubes were removed without event and her chest x-rays remained stable. She was seen by Oncology. Discussion regarding adjuvant treatment was inconclusive and she has plans to follow up with Oncology in the outpatient setting. DISCHARGE INSTRUCTIONS: Patient was discharged to a subacute nursing facility in stable condition. Her pauline and chest tubes were removed. Activity limitations were discussed. She was given a pres cription for oxycodone and continue all of her regular home medicines. She is to follow up with [facility]-2 weeks with a repeat chest x-ray in the outpatient setting. /[id number]/MODL
--- NOTE | 2017-06-13 15:03 | ASMTCMCOM ---
CM Note CM Note Notes: Patient discharging to [facility] by wheelchair transport by [facility]. They will bring O2 for patient on transition. Patient and informed and in agreement with plan. Patients had told this C/M that his needed an xray for Dr. Condon prior to leaving hospital. However, patients nurse Brittany called they neuro surgery office and they said patient is to get the xray outpatient at [facility]. No additional Case management needs apparent at this time. Date Signed: 06/13/2017 03:03 PM Electronically Signed By:VANE London
== END 2017-06-13 15:15 | DRG 164 ==
LOC: F3E 09:39 → F2N 18:21 → F3N 06-04 17:24 → F1N 06-07 14:15
PROVIDERS: ADMIT Surgery; ATTEND Surgery
PROC: 0BTG4ZZ Resection of Left Upper Lung Lobe, Percutaneous Endoscopic Approach (ICD-10-PCS; principal; 2017-05-31 11:45)
DX: C34.12 Malignant neoplasm of upper lobe, left bronchus or lung (principal); E87.1 Hypo-osmolality and hyponatremia; E87.6 Hypokalemia; D62 Acute posthemorrhagic anemia; R41.0 Disorientation, unspecified; Z85.3 Personal history of malignant neoplasm of breast; Z87.891 Personal history of nicotine dependence; J44.9 Chronic obstructive pulmonary disease, unspecified; I10 Essential (primary) hypertension; K21.9 Gastro-esophageal reflux disease without esophagitis; R13.10 Dysphagia, unspecified; Z87.01 Personal history of pneumonia (recurrent); Z87.440 Personal history of urinary (tract) infections
CPT/HCPCS: 97110-GP; 97116-GP; 97161-GP; 97166-GO; 97530-GO; 97530-GP; 97535-GO; G8978-GP-CJ; G8978-GP-CK; G8979-GP-CI; G8980-GP-CJ; G8987-GO-CL; G8988-GO-CJ; J0690; J1100; J1170; J1200; J1650; J1885; J2250; J2405; J2704; J2780; J3010; P9041

== ENCOUNTER → 2017-06-15 | Outpatient (CLI) | payer OTHER | LOC: FIMAGING 12:36 | PROVIDERS: ATTEND Physician Assistant Surgical | DX: Z47.89 Encounter for other orthopedic aftercare (principal); Z98.1 Arthrodesis status ==

== ENCOUNTER → 2017-06-27 | Outpatient (CLI) | payer OTHER | LOC: FIMAGING 14:22 | PROVIDERS: ATTEND Physician Assistant | DX: C34.90 Malignant neoplasm of unspecified part of unspecified bronchus or lung (principal); J43.9 Emphysema, unspecified; Z90.2 Acquired absence of lung [part of]; Z98.890 Other specified postprocedural states ==

== ENCOUNTER → 2017-07-27 | Outpatient (CLI) | payer OTHER | LOC: FIMAGING 14:25 | PROVIDERS: ATTEND Surgery | DX: Z08 Encounter for follow-up examination after completed treatment for malignant neoplasm (principal); Z90.2 Acquired absence of lung [part of]; Z85.118 Personal history of other malignant neoplasm of bronchus and lung ==

== ENCOUNTER → 2017-08-31 | Outpatient (CLI) | payer OTHER ==
[~2017-08-31] MED LIST changes: +GADOBUTROL 10 ML VIAL IVP ONE; -IOPAMIDOL (ISOVUE-300) 100 ML BTL ONE
== END ==
LOC: FIMAGING 08:06
PROVIDERS: ATTEND Physician Assistant Surgical
DX: R53.1 Weakness (principal); Z85.3 Personal history of malignant neoplasm of breast; Z98.1 Arthrodesis status
CPT/HCPCS: 70553; A9585

== ENCOUNTER 2017-09-12 07:28 | Day surgery (SDC) | payer OTHER ==
[~2017-09-12 07:28] MED LIST changes: +ALTEPLASE 2 MG VIAL IVP PRN; +FLUMAZENIL 0.5 MG/5 ML MDV IVP PRN; -GADOBUTROL 10 ML VIAL IVP ONE; +GLUCAGON HCL 1 MG VIAL IVP PRN; +HEPARIN 10,000 UNIT/10 ML MDV (1,000 UNIT/ML) IVP PRN; +MEPERIDINE 25 MG/ML SYR IVP PRN; +MIDAZOLAM 2 MG/2 ML VIAL IVP PRN; +NALOXONE HCL 0.4 MG/ML INJ IVP PRN; +PROTAMINE SULFATE 50 MG/5 ML VIAL IVP PRN; +fentaNYL 100 MCG/2 ML INJ IVP PRN
[2017-09-12] MEDS ORDERED: NS 1,000 ML IV SCH (07:30)
[2017-09-12 08:21] LABS: INR 0.96 (0.83-1.16)
--- NOTE | 2017-09-12 08:47 | PDGENHP ---
History & Physical Chief Complaint: FDG avid nodule left abdomen History of Present Illness: prior hx of breast and lung cancer Pertinent Past, Social, Family History: n/a Relevant Physical Exam: RRR, NAD, soft abdomen Cardiorespiratory Assessment: wnl
--- NOTE | 2017-09-12 08:48 | PDPROPOC ---
Sedation Plan of Care ASA Classification: ASA 2 Planned drugs: fentanyl, midazolam Mallampati Score: Class 2 Mallampati Reference Image: Patient passed 3-3-2 rule?: Yes
--- NOTE | 2017-09-12 09:27 | PDRADPN ---
Radiology Procedure Note Date of Procedure: 09/12/17 Radiologist: Yariel Mike Anesthesia: IV Sedation, Local (Specify) Pre-op Diagnosis: suspected metastasis Post-op Diagnosis: same Indication: diagnose suspected abd met Procedure: CT guided bx Finding(s): good specimen volume per saw filer Inf/Abcess present in the surg proc area at time of surgery?: No Depth: Organ Space EBL: Minimal Complications: none apparent
[2017-09-12 09:55] VITALS: PULSE 62
[2017-09-12] MEDS ORDERED: ONDANSETRON 4 MG/2 ML VIAL IVP PRN (09:56)
[2017-09-12] MEDS ORDERED: ACETAMINOPHEN 325 MG TAB PO PRN (09:56)
[2017-09-12 10:33] VITALS: BP 147/63; RESP 18; TEMP 98
[2017-09-12 10:53] VITALS: O2SAT 96
== END 2017-09-12 09:48 | disposition home or self-care (01) ==
LOC: FIMAGING 07:28
PROVIDERS: ATTEND Internal Medicine Hematology & Oncology
PROC: 0WBH3ZX Excision of Retroperitoneum, Percutaneous Approach, Diagnostic (ICD-10-PCS; principal; 2017-09-12 09:35)
DX: C78.6 Secondary malignant neoplasm of retroperitoneum and peritoneum (principal); C34.12 Malignant neoplasm of upper lobe, left bronchus or lung; Z78.0 Asymptomatic menopausal state
CPT/HCPCS: J2250; J2310; J3010

== ENCOUNTER → 2017-09-14 | Outpatient (CLI) | payer OTHER ==
[~2017-09-14] MED LIST changes: -ALTEPLASE 2 MG VIAL IVP PRN; -FLUMAZENIL 0.5 MG/5 ML MDV IVP PRN; -GLUCAGON HCL 1 MG VIAL IVP PRN; -HEPARIN 10,000 UNIT/10 ML MDV (1,000 UNIT/ML) IVP PRN; +IOPAMIDOL (ISOVUE 370) 100 ML BTL IV ONE; -MEPERIDINE 25 MG/ML SYR IVP PRN; -MIDAZOLAM 2 MG/2 ML VIAL IVP PRN; -NALOXONE HCL 0.4 MG/ML INJ IVP PRN; -PROTAMINE SULFATE 50 MG/5 ML VIAL IVP PRN; -fentaNYL 100 MCG/2 ML INJ IVP PRN
== END ==
LOC: FIMAGING 13:34
PROVIDERS: ATTEND Radiology Diagnostic Radiology
DX: Z48.813 Encounter for surgical aftercare following surgery on the respiratory system (principal); Z90.2 Acquired absence of lung [part of]
CPT/HCPCS: 71275; 74176; Q9967

== ENCOUNTER 2017-11-17 11:18 | Inpatient (IN) | payer OTHER ==
[2017-11-17 12:21] LABS: PLATELET COUNT 332 10^3/uL (150-400)
--- NOTE | 2017-11-17 12:22 | EDPHY ---
HPI/HX/ROS/PE/MDM Narrative: CHIEF COMPLAINT: Multiple falls HISTORY OF PRESENT ILLNESS: This patient is an 82 year old female with history of metastatic lung and breast cancer, arriving at the request of her oncologist, Dr. Garcias, after falling twice in the last two days. Around 2:00am the night before last, she got out of bed using her walker, as she does around her home. She fell and her had a difficult time getting her up. They deny any loss of consciousness or altered mental status following this. Yesterday afternoon, she tripped over her walker and fell again. The handle of the walker struck her ribs as she fell. She denies any chest pain, shortness of breath, weakness, or dizziness prior to her falls. She has had increased pain in her left leg where she has cancer in her soft tissue. She is currently undergoing radiation to her abdomen. Most recent immunotherapy infusion was on Tuesday. No fever, chills, chest pain, shortness of breath, palpitations, vomiting, diarrhea, urinary complaints, headache, lightheadedness. REVIEW OF SYSTEMS: Aside from elements discussed in the HPI, a comprehensive 10-point review of systems was reviewed and is negative. PAST MEDICAL HISTORY: Hypertension, GERD, breast cancer, lung cancer s/p left upper lobectomy 05/2017, axillary node dissection, appendectomy, cholecystectomy , partial left knee replacement, tonsillectomy, SOCIAL HISTORY: . Family at bedside. VITAL SIGNS: Reviewed by me GENERAL: Well-developed, well-nourished, resting comfortably in no respiratory distress. HEENT: Atraumatic. Eyes: No icterus, no injection. Mouth: dry mucous membranes. No erythema or lesions. Neck: supple with no adenopathy. LUNGS: Left chest wall tenderness, no crepitus. Clear to auscultation bilaterally, no wheezes, rhonchi or rales. CARDIAC: Irregularly irregular, no rubs, murmurs or gallops. ABDOMEN: Left middle and lower abdominal pain. Soft, nondistended, bowel sounds normal. BACK: No CVA tenderness. EXTREMITIES: No trauma. No edema. Range of motion is normal throughout. NEURO: Alert and oriented, grossly nonfocal. SKIN: Warm and dry, no rash. PSYCHIATRIC: Normal mentation, no agitation. Portions of this note were transcribed by a medical billing service. I personally performed a history, physical exam, medical decision making, and confirmed accuracy of information the transcribed note. ED Course: 82 y/o female with history of breast and lung cancer presents following two falls. She has a known history of hyponatremia. On my examination she is irregularly irregular and I suspect she has had developed new onset atrial fibrillation. Plan for EKG, chest x-ray, labs including CBC, chemistries, troponin, UA. Plan to administer 1L IV NF. 12-LEAD EKG: Please see the full report in [facility]. My interpretation: atrial fibrillation. Reviewed CXR. S/p left lobectomy. No acute fractures. No infiltrate or pneumothorax. Reviewed laboratory studies. Patient hyponatremic at 126. Chloride 90. UA concerning for urinary tract infection, however, this was a urine specimen from a bedpan. We will send for culture. Patient has had no fevers. 13:07 Spoke with hospitalist service. Dr. Peterson accepts admission for weakness , atrial fibrillation, hyponatremia. MDM: Differential diagnosis of the patient's weakness was considered including but not limited to electrolyte abnormality, anemia, cardiac ischemia, CVA, spinal cord abnormality, and infectious causes. - Data Points Imaging Results: Imaging Impressions Chest X-Ray 11/17/17 13:05 Impression: Postsurgical change following a prior left upper lobectomy, with no acute rib fracture, new infiltrate, or pneumothorax. Imaging: I viewed and interpreted images myself Laboratory Results: Laboratory Results 11/17/17 12:12 11/17/17 12:12 11/17/17 11/17/17 11/17/17 12:40 12:17 12:12 WBC RBC Hgb POC Hgb 13.6 gm/dL gm/dL (12.6-16.3) Hct POC Hct 40 % % (38-47) MCV MCH MCHC RDW Plt Count MPV Neut % (Auto) Lymph % (Auto) [place] % (Auto) Eos % (Auto) Baso % (Auto) Nucleat RBC Rel Count Absolute Neuts (auto) Absolute Lymphs (auto) Absolute Monos (auto) Absolute Eos (auto) Absolute Basos (auto) Absolute Nucleated RBC Immature Gran % Seg Neutrophils % Band Neutrophils % Lymphocytes % Monocytes % Eosinophils % Basophils % Metamyelocytes % Myelocytes % Promyelocytes % Blast Cells % Megakaryocytes % Immature Gran # Absolute Seg Neuts Absolute Band Neuts Absolute Lymphocytes Absolute Monocytes Absolute Eosinophils Absolute Basophils Absolute Metamyelocyte Absolute Myelocytes Absolute Promyelocytes Absolute Plasma Cells Nucleated RBCs Differential Comment RBC/WBC/PLT Morphology Hypersegmented Neuts Atypical Lymphocytes Absolute Blast Cells Plasma Cells % Smudge Cells Toxic Granulation Toxic Vacuolation Dohle Bodies Lora Rods Platelet Estimate Clumped Platelets Large Platelets Giant Platelets Bizarre Platelets Polychromasia Hypochromasia Basophilic Stippling Microcytic Cells Spherocytes Pappenheimer Bodies Sickle Cells Target Cells Tear Drop Cells Oval Macrocytes Stomatocytes [place] Bodies Echinocytes Elliptocytes Acanthocytes (Spur) Rouleaux Keratocytes Schistocytes POC Sodium 128 mEq/L L mEq/L (135-145) Sodium 126 mEq/L L mEq/L (135-145) POC Potassium 3.6 mEq/L mEq/L (3.3-5.0) Potassium 4.1 mEq/L mEq/L (3.5-5.2) POC Chloride 89 mEq/L L mEq/L (97-110) Chloride 90 mEq/L L mEq/L (97-110) Carbon Dioxide 24 mEq/l mEq/l (22-31) Anion Gap 12 mEq/L mEq/L (8-16) POC BUN 8 mg/dL mg/dL (7-23) BUN 10 mg/dL mg/dL (7-23) Creatinine 0.5 mg/dL L mg/dL (0.6-1.0) POC Creatinine 0.5 mg/dL L mg/dL (0.6-1.0) Estimated GFR > 60 Glucose 124 mg/dL H mg/dL (70-100) POC Glucose 132 mg/dL H mg/dL (70-100) Calcium 8.9 mg/dL mg/dL (8.5-10.4) Troponin I 0.018 ng/mL ng/mL (0.000-0.034) Urine Color LEILANI Urine Appearance MODERATELY TURBID Urine pH 5.0 (5.0-7.5) Ur Specific [place] 1.020 (1.002-1.030) Urine Protein 1+ H (NEGATIVE) Urine Ketones TRACE H (NEGATIVE) Urine Blood 2+ H (NEGATIVE) Urine Nitrate POSITIVE H (NEGATIVE) Urine Bilirubin NEGATIVE (NEGATIVE) Urine Urobilinogen 4.0 EU H EU (0.2-1.0) Ur Leukocyte Esterase 3+ H (NEGATIVE) Urine RBC 15-25 /hpf H /hpf (0-3) Urine WBC 50-182 /hpf H /hpf (0-3) Ur Epithelial Cells 2+ /lpf H /lpf (NONE-1+) Urine Bacteria 4+ /hpf H /hpf (NONE SEEN) Hyaline Casts 5-15 /lpf /lpf (0-1) Urine Mucus 4+ /lpf H /lpf (NONE-1+) Urine Glucose NEGATIVE (NEGATIVE) Cold Agglutinins 11/17/17 12:12 WBC 9.19 10^3/uL 10^3/uL (3.80-9.50) RBC 4.46 10^6/uL 10^6/uL (4.18-5.33) Hgb 12.2 g/dL L g/dL (12.6-16.3) POC Hgb Hct 36.6 % L % (38.0-47.0) POC Hct MCV 82.1 fL fL (81.5-99.8) MCH 27.4 pg L pg (27.9-34.1) MCHC 33.3 g/dL g/dL (32.4-36.7) RDW 13.2 % % (11.5-15.2) Plt Count 332 10^3/uL 10^3/uL (150-400) MPV 9.9 fL fL (8.7-11.7) Neut % (Auto) 76.5 % H % (39.3-74.2) Lymph % (Auto) 6.0 % L % (15.0-45.0) [place] % (Auto) 16.6 % H % (4.5-13.0) Eos % (Auto) 0.3 % L % (0.6-7.6) Baso % (Auto) 0.2 % L % (0.3-1.7) Nucleat RBC Rel Count 0.0 % % (0.0-0.2) Absolute Neuts (auto) 7.02 10^3/uL H 10^3/uL (1.70-6.50) Absolute Lymphs (auto) 0.55 10^3/uL L 10^3/uL (1.00-3.00) Absolute Monos (auto) 1.53 10^3/uL H 10^3/uL (0.30-0.80) Absolute Eos (auto) 0.03 10^3/uL 10^3/uL (0.03-0.40) Absolute Basos (auto) 0.02 10^3/uL 10^3/uL (0.02-0.10) Absolute Nucleated RBC 0.00 10^3/uL 10^3/uL (0-0.01) Immature Gran % 0.4 % % (0.0-1.1) Seg Neutrophils % Cancelled Band Neutrophils % Cancelled Lymphocytes % Cancelled Monocytes % Cancelled Eosinophils % Cancelled Basophils % Cancelled Metamyelocytes % Cancelled Myelocytes % Cancelled Promyelocytes % Cancelled Blast Cells % Cancelled Megakaryocytes % Cancelled Immature Gran # 0.04 10^3/uL 10^3/uL (0.00-0.10) Absolute Seg Neuts Cancelled Absolute Band Neuts Cancelled Absolute Lymphocytes Cancelled Absolute Monocytes Cancelled Absolute Eosinophils Cancelled Absolute Basophils Cancelled Absolute Metamyelocyte Cancelled Absolute Myelocytes Cancelled Absolute Promyelocytes Cancelled Absolute Plasma Cells Cancelled Nucleated RBCs Cancelled Differential Comment Cancelled RBC/WBC/PLT Morphology Cancelled Hypersegmented Neuts Cancelled Atypical Lymphocytes Cancelled Absolute Blast Cells Cancelled Plasma Cells % Cancelled Smudge Cells Cancelled Toxic Granulation Cancelled Toxic Vacuolation Cancelled Dohle Bodies Cancelled Lora Rods Cancelled Platelet Estimate Cancelled Clumped Platelets Cancelled Large Platelets Cancelled Giant Platelets Cancelled Bizarre Platelets Cancelled Polychromasia Cancelled Hypochromasia Cancelled Basophilic Stippling Cancelled Microcytic Cells Cancelled Spherocytes Cancelled Pappenheimer Bodies Cancelled Sickle Cells Cancelled Target Cells Cancelled Tear Drop Cells Cancelled Oval Macrocytes Cancelled Stomatocytes Cancelled [place] Bodies Cancelled Echinocytes Cancelled Elliptocytes Cancelled Acanthocytes (Spur) Cancelled Rouleaux Cancelled Keratocytes Cancelled Schistocytes Cancelled POC Sodium Sodium POC Potassium Potassium POC Chloride Chloride Carbon Dioxide Anion Gap POC BUN BUN Creatinine POC Creatinine Estimated GFR Glucose POC Glucose Calcium Troponin I Urine Color Urine Appearance Urine pH Ur Specific [place] Urine Protein Urine Ketones Urine Blood Urine Nitrate Urine Bilirubin Urine Urobilinogen Ur Leukocyte Esterase Urine RBC Urine WBC Ur Epithelial Cells Urine Bacteria Hyaline Casts Urine Mucus Urine Glucose Cold Agglutinins Cancelled Medications Given: Discontinued Medications Sodium Chloride (Ns) 500 mls @ 250 mls/hr IV EDNOW ONE PRN Reason: Protocol Stop: 11/17/17 14:40 Last Admin: 11/17/17 13:08 Dose: 500 mls Point of Care Test Results: 11/17/17 12:17 POC Sodium 128 L POC Potassium 3.6 POC Chloride 89 L POC BUN 8 POC Creatinine 0.5 L POC Glucose 132 H General Time Seen by Provider: 11/17/17 11:48 Initial Vital Signs: Initial Vital Signs Temperature (C) 36.5 C 11/17/17 11:31 Heart Rate 113 H 11/17/17 11:31 Respiratory Rate 20 11/17/17 11:31 Blood Pressure 95/67 L 11/17/17 11:31 O2 Sat (%) 94 11/17/17 11:31 O2 Delivery Mode Room Air Allergies/Adverse Reactions: nitrofurantoin Allergy (Mild, Verified 11/17/17 11:26) Itching Home Medications: Medication Instructions Recorded Atenolol [Tenormin 50 mg (*)] 50 mg PO BID 05/23/16 Cetirizine [ZyrTEC 10 mg (*)] 10 mg PO DAILY 05/23/16 Triamterene/Hydrochlorothiazid 1 each PO DAILY 05/23/16 [Triamterene-Hctz 37.5-25 mg Cp] Methenamine Mandelate [METHENAMINE 500 mg PO BID 04/06/17 MANDELATE] Esomeprazole Mag Trihydrate 40 mg PO DAILY 05/10/17 [Nexium] Acetaminophen [Tylenol ES 500 mg 1,000 mg PO Q8HRS PRN 05/30/17 (*)] Prochlorperazine Maleate 10 mg PO DAILY PRN 11/17/17 [Compazine 10mg (*)] oxyCODONE HCL [Oxycontin] 10 mg PO BID 11/17/17 oxyCODONE IR [Oxycodone Ir (*)] 5 mg PO Q4HRS PRN 11/17/17 Departure - Departure Disposition: [facility] Acute Clinical Impression: Hyponatremia, Weakness Atrial fibrillation Qualifiers: Atrial fibrillation type: unspecified Qualified Code(s): I48.91 - Unspecified atrial fibrillation Condition: Fair Report Scribed for: Jaylene Rivera Report Scribed by: Kiara Stokes Date of Report: 11/17/17 Time of Report: 12:25
[2017-11-17] MEDS ORDERED: NS 500 ML IV ONE (12:41)
--- NOTE | 2017-11-17 12:58 | CPEKG ---
Heart Rate: 135 RR Interval: 444 QRSD Interval: 80 QT Interval: 304 QTC Interval: 456 QRS [place]: 48 T Wave [place]: 40 EKG Severity - ABNORMAL ECG - EKG Impression: ATRIAL FIBRILLATION, V-RATE 78-205 EKG Impression: LOW VOLTAGE IN FRONTAL LEADS Electronically Signed By: Jaylene Rivera 17-Nov-2017 16:22:33
[2017-11-17] MEDS ORDERED: ACETAMINOPHEN 325 MG TAB PO PRN (15:53)
[2017-11-17] MEDS ORDERED: ONDANSETRON DISINTEGRATING 4 MG TAB PO PRN (15:53)
[2017-11-17] MEDS ORDERED: ONDANSETRON 4 MG/2 ML VIAL IVP PRN (15:53)
[2017-11-17] MEDS ORDERED: DILTIAZEM 125 MG in D5W 125 ML IV SCH (16:00)
[2017-11-17] MEDS ORDERED: PROCHLORPERAZINE MALEATE 10 MG TAB PO PRN (16:27)
--- NOTE | 2017-11-17 17:11 | GHP ---
[f rep st] HISTORY AND PHYSICAL DATE OF ADMISSION: 11/17/2017 CHIEF COMPLAINT: Falls. HISTORY OF PRESENT ILLNESS: This is an 82-year-old female who presents with 2 falls. These both occurred 2 days ago. The 1st one was overnight; she does not really recollect this. The 2nd was the following day where she was sitting , stood up, fell, hitting her ribs on her walker. She has had pain there since then. She denies any preceding shortness of breath, chest pain. She has never had an episode of syncope. She is unsure exactly why she fell, however. Notably, she has been getting radiation for a relatively recent diagnosis of lung cancer which was resected last May. She has also been treated for a urinary tract infection recently. She believes she received antibiotics for this. In the emergency department, she was found to be hyponatremic and in atrial fibrillation. She has never had a history of atrial fibrillation before. She does not note any palpitations. Again, she has no chest pain, shortness of breath. No change in her exercise tolerance. She is taking hydrochlorothiazide , tells me she eats significant amounts of salt and has not been drinking an abnormal amount of water recently. Her urine production has been normal as well. PAST MEDICAL/SURGICAL HISTORY: 1. Distant breast cancer status post lobectomy as well as lymph node dissection. 2. Recent diagnosis of lung cancer status post lobectomy. She is currently on immunotherapy getting radiation. 3. Chronic urinary tract infections, on methenamine. 4. Questionable history of COPD. 5. Hypertension. 6. GERD. 7. Appendectomy. 8. ACDF. 9. Cholecystectomy. 10. Hysterectomy. 11. Knee surgery. 12. Rotator cuff surgery. 13. Tonsillectomy. MEDICATIONS: Please see medication reconciliation. ALLERGIES: Macrobid. FAMILY HISTORY: Reviewed and noncontributory. SOCIAL HISTORY: She occasionally drinks alcohol. She quit smoking decades ago. She is accompanied by her . REVIEW OF SYSTEMS: A 10-point review of systems is conducted and is negative except per HPI. PHYSICAL EXAM: VITAL SIGNS: Initial blood pressure 95/67, with heart rate 113 , respiration rate 20, saturating 94% on room air. Temperature is 36.5. Her heart rate has decreased to 95, with an increase in her blood pressure to 113/ 62. GENERAL: The patient is a very pleasant female, who is resting comfortably , in no acute distress. HEENT: Normocephalic, atraumatic. CARDIOVASCULAR: Irregularly irregular. She is tachycardic. I do not appreciate any murmurs, rubs, or gallops. She has no elevated JVD. No lower extremity edema. PULMONARY: Diminished breath sounds in the left side. Otherwise, there are no adventitious sounds. ABDOMEN: Soft. She is mildly tender to palpation in the left mid quadrant. She has no rebound or guarding tenderness. SKIN: No rash. : No [place]. NEUROLOGIC: Alert and oriented x3. She is moving all extremities. She has nonfocal neurologic exam. PSYCHIATRIC: Normal mood and affect. LABS: Her white count is 9.1, hemoglobin is 12. Sodium is 126, creatinine 0.5. Troponin 0.018. Urinalysis shows 50-182 whites. She is positive for nitrates. She has 3+ leukocyte esterase. DATA: 1. Discussed with Ines Fajardo. Will admit to med/surg. 2. Chest x-ray, which I personally viewed and interpreted, shows normal heart size. No acute infiltrates. She has mildly elevated left hemidiaphragm. Radiologist appreciates no rib fractures. 3. ECG, which I personally viewed and interpreted as well, also shows atrial fibrillation. She has mildly slow R-wave progression. There is nothing ischemic on this EKG. IMPRESSION AND PLAN: An 82-year-old female presents with multiple falls, I suspect due to new onset atrial fibrillation as well as hyponatremia. 1. Atrial fibrillation: Precipitant likely recent surgery, radiation for lung cancer. She is at risk for a pulmonary embolus, given her cancer which is being actively treated. It would change the dose of Eliquis she needs. Will check a D-dimer. If this is positive, will proceed with a CT angiogram. Otherwise, will monitor on telemetry in the PCU. Will place her on a Cardizem drip. We will start her on oral Cardizem as well. I have discussed the risks and benefits of anticoagulation. I have started her on Eliquis 2.5 mg p.o. b.i.d. Notably, I reviewed her MRI from 2 months ago which was negative for any metastatic disease. 2. Hyponatremia: Suspect that this is due to her atrial fibrillation in the setting of hydrochlorothiazide. She is clinically euvolemic to dry. I think I will, at this point, just hold her diuretics, try to control her atrial fibrillation rate, and follow her sodium tomorrow morning. 3. Consider Cardiology consult if she continues to be in atrial fibrillation. 4. Will hold her atenolol in the setting of starting oral diltiazem to avoid 2 booker blocking agents. 5. Hypertension: As above, hold atenolol, as well as hydrochlorothiazide and triamterene. 6. Pyuria: She has significant pyuria on UA - will treat for a UTI given the new a-fib. Start rocephin. Follow urine culture - if this is negative would stop antibiotics. 7. Anemia: This is chronic and stable. 8. Lung cancer, currently on immunotherapy and radiation: Dr. Garcias was notified by her call earlier today that she would be coming to the emergency department. Would confirm with covering oncologist tomorrow. 9. Code status: She would like to be full code. 10. Venous thromboembolism risk: This is low, as she is being started on Eliquis. /[id number]/MODL MTDD
[2017-11-17] MEDS: DILTIAZEM 30 MG TAB PO SCH (18:24)
[2017-11-17] MEDS: oxyCODONE IR 5 MG TAB PO PRN (18:34)
--- NOTE | 2017-11-17 19:37 | GCON ---
[f rep st] CONSULTATION ONCOLOGY CONSULTATION REASON FOR CONSULTATION: Increasing weakness with hyponatremia, new-onset atrial fibrillation, with metastatic squamous cell carcinoma of the lung. HISTORY OF PRESENT ILLNESS: The patient is a very pleasant 82-year-old female, with stage IV non-small cell lung cancer, who is admitted today after falling at home twice in the last few days due to progressive weakness. Her recent oncology history dates back to the fall, when she was found to have a left upper lobe pulmonary nodule measuring 15 mm in a preoperative chest x-ray that was being done prior to a cervical diskectomy. The nodule was PET avid and at that time she had no evidence of metastatic disease. A biopsy on May 13, confirmed invasive moderately differentiated squamous cell carcinoma. She had the cervical spine diskectomy on April 06, 2017, and then underwent a left upper lobe lobectomy on May 30, 2017. Pathology from that revealed a squamous cell carcinoma that was invading the visceral pleura. There was no angiolymphatic invasion. Two hilar nodes were sampled and were negative for metastases. This was initially staged as a stage I(T1b N0 M0). She had a followup CT scan of the chest, abdomen and pelvis in mid August, primarily establishing a new baseline postoperatively, and she was found to have a stable small right middle lobe lung nodule measuring 6 mm, but also she had a new 1.7 cm enhancing nodule in the left posterior abdomen, near the left kidney. A PET scan showed initially the left retroperitoneal metastases, along with a smaller nodule in the left peritoneum, and a left thigh metastasis. Biopsy of the retroperitoneal mass was done on September 12. This revealed metastatic squamous cell carcinoma. The tumor was positive for PD-L1 expression at 20%, and was otherwise negative for EGFR alk, RET, and MET. The patient's performance status was between an ECOG 1 and 2, and she was felt to be a poor candidate for chemotherapy. Due to the PD-L1 expression (albeit, less than 50%), she was started on pembrolizumab on October 25, and received her second dose on November 15. Throughout October she started developing increasing left flank pain and left lower quadrant pain. A followup CT scan on October 28, showed that the left retroperitoneal mass had increased significantly in size measuring 38 x 38 mm, compared to a CT scan on September 14, where is measured 24 x 20 mm. In addition, there was a second perinephric retroperitoneal mass measuring 16 x 14 mm, and a small enhancing nodule within the musculature along the posterior aspect of the mass below the left kidney measuring 7 x 5 mm. Due to increasing left flank pain, she started on radiation therapy with Dr. Barraza. She was to have received 10 doses of radiation and that was to have ended on Tuesday, but she has missed one or two due to recent symptoms of fatigue. She was seen earlier in the week in the office with symptoms of increasing weakness. Sodium was 124, with a baseline that had been in the mid 130s. A followup sodium yesterday was 125. Her called the office today after she had fallen twice at home and he was unable to care for her safely. PAST MEDICAL HISTORY: History of stage II breast cancer, treated in 2004, with lumpectomy and postlumpectomy radiation therapy. She received adriamycin, cytoxan, and taxol as adjuvant chemotherapy and was on tamoxifen for up to 12 years. This was treated elsewhere. Also hypertension. PAST SURGICAL HISTORY: Hysterectomy, appendectomy, right rotator cuff repair, partial knee replacement, lumpectomy with axillary node dissection, cholecystectomy, and left upper lobe lobectomy in May of 2017. FAMILY HISTORY: Notable for a daughter with breast cancer at age 63. Her mother of a splenic rupture. Family history is otherwise noncontributory. SOCIAL HISTORY: She is . She previously smoked cigarettes, but does not smoke now. She has 3 daughters and 2 sons. One of her daughters lives locally. She lives in [place] and often spends mallory in [place]. 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 She quit smoking in 1989, but prior to that smoked 40 years, 1 to 2 packs a day. REVIEW OF SYSTEMS: A 10-point review of systems is negative other than as noted in the HPI. Of note, she denies any fever or chest pain. PHYSICAL EXAMINATION: GENERAL: She is lying comfortably in bed. VITAL SIGNS: Blood pressure 126/95, heart rate 98 to 120, O2 sat 93% on room air, she is afebrile. HEENT: Pupils equal. Sclerae anicteric. Oropharynx clear. LUNGS: Clear to auscultation. HEART: Irregularly irregular. ABDOMEN: Soft. She is tender in the left upper quadrant. EXTREMITIES: No edema. She is tender in the left thigh to palpation. LABORATORY DATA: White blood cell count 9.2, hematocrit 36, platelets 332. Metabolic panel notable for a sodium of 128, creatinine 0.5. Urine is 2+ blood , 3+ leukocyte esterase, 50 to 182 WBCs. IMPRESSION: This is an 82-year-old female with stage IV squamous cell carcinoma of the lung, who is admitted with increasing weakness, hyponatremia, and new-onset atrial fibrillation. She also appears to have a urinary tract infection. She also has a remote history of stage II breast cancer, treated with lumpectomy, axillary dissection and adjuvant chemotherapy with adriamycin, cytoxan and taxol. The increasing weakness over the last several days is likely multifactorial with the new-onset atrial fibrillation and hyponatremia, as well as the urinary tract infection. Urine culture is pending. The hyponatremia is gradually improving and the etiology is not entirely clear. I suspect she is somewhat hypovolemic. She has been on a diuretic and that has been discontinued. Pembrolizumab can cause hyponatremia, but I suspect it is too early for us to see that. The atrial fibrillation is new. She has been started on Eliquis. Of note, she has received prior anthracycline. Hopefully, the patient can complete radiation while she is an inpatient. I think she has only 2 or 3 more treatments left. She may need radiation to the left thigh soft tissue mass at some point for pain relief. She has had progressive dementia over the last 6 months, which at times is subtle. Her last brain MRI was in August, and that was unremarkable. I suspect after the acute medical issues have been addressed, she will likely need some type of assisted placement with physical therapy. We will have to see how much her performance status improves with the correction of these current acute issues. We will continue to follow along with you. /[id number]/MODL MTDD
[2017-11-17] MEDS ORDERED: ATENOLOL 50 MG TAB PO SCH (21:00)
[2017-11-17] MEDS: APIXABAN 2.5 MG TAB PO SCH (21:08)
[2017-11-17] MEDS: METHENAMINE MANDELATE 500 MG PO SCH (21:09)
[2017-11-17] MEDS ORDERED: IOPAMIDOL (ISOVUE 370) 100 ML BTL IV ONE (22:01)
[2017-11-18] MEDS: DILTIAZEM 30 MG TAB PO SCH ×3 (01:11→12:12)
[2017-11-18 05:31] LABS: PLATELET COUNT 314 10^3/uL (150-400)
[2017-11-18] MEDS: oxyCODONE IR 5 MG TAB PO PRN ×2 (08:16→16:15)
[2017-11-18] MEDS: PANTOPRAZOLE SODIUM 40 MG TAB PO SCH (10:10)
[2017-11-18] MEDS: APIXABAN 2.5 MG TAB PO SCH ×2 (10:10→20:22)
[2017-11-18] MEDS: CETIRIZINE 10 MG TAB PO SCH (10:11)
--- NOTE | 2017-11-18 10:55 | ECHO ---
[email or web address] [address] Main: [phone] Fax: Transthoracic Echocardiogram Name: BRYN CHERY MR#: [id number] Study Date: 11/18/2017 Study Time: 07:36 AM Date of : 1935 Age: 82 year(s) Height: 160 cm (63 in.) Weight: 52.62 kg (116 lb.) BSA: 1.53 m2 Gender: Female Examination: Echo Indication: Atrial Fibrillation Image Quality: Adequate Contrast: Requested by: Quincy Peterson BP: 117 mmHg/62 mmHg Heart Rate: Rhythm: Indication: Atrial Fibrillation Procedure Staff Lining Layer: Nel Darden [facility] Reading Physician: Anupama Yepez MD Requesting Provider: Conclusions: Normal size left ventricle. No LV hypertrophy. Normal global systolic LV function. EF is 58 %. No regional wall motion abnormality. Normal size right ventricle. Normal RV function. The left atrium is mildly dilated. Mild mitral valve regurgitation is present. Moderate to severe aortic regurgitation. The aortic valve is trileaflet. Moderate tricuspid regurgitation is present. Right ventricular systolic pressure measures 38mmHg. no prior echocardiogram Measurements: Chambers Valvular Assessment AV/MV Valvular Assessment TV/PV Normal Normal Normal Name Value Range Name Value Range Name Value Range Ao Cecy (2D): 3.1 cm (1.4 cm-2.6 AV meanP mmHg ( - ) TR Vmax: 2.88 mm/s ( - ) cm) JOEY (VTI): 1.9 cm ( - ) TR PGmax: 33 mmHg ( - ) IVSd (2D): 0.8 cm (0.6 cm-1.1 AR (PHT): 428 ms ( - ) syst. PAP: 38 mmHg ( - ) cm) MV E Vmax: 1.17 m/s ( - ) PV Vmax: 0.99 m/s (0.6 m/s-0.9 LVDd (2D): 3.9 cm (3.9 cm-5.3 MV PHT: 0.050 s ( - ) m/s) cm) MVA (PHT): 4.4 s ( - ) PV PGmax: 4 mmHg ( - ) LVDs (2D): 2.9 cm (2.1 cm-4 cm) LVPWd (2D): 0.9 cm ( - ) LVOTd 2.0 cm 2.0 cm mm LVEF (BP): 58 % (>=55 %) Patient: BRYN CHERY Study Date: 11/18/2017 Page 1 of 2 07:36 AM RVDd(2D): 3.1 cm (1.9 cm-3.8 cmmm) Continued Measurements: Chambers Valvular Assessment AV/MV Valvular Assessment TV/PV Name Value Name Value Name Value LADs: 3.3 cm MV DecTime: 180 m/s CVP (est.): 5 mmHg LADs Lon.5 cm MV E' Septal: 0.11 m/s LA Area: 21.0 cm2 MV E/E' Septal: 10.30 LA Volume: 62 ml MV E/E' Lateral: 9.00 LA Volume Index: 40.5 ml/m2 AR Vmax: 4.40 cm/s RA Area: 15.2 cm2 Additional Vessels Name Value Ao Ascendin.0 cm Inferior Vena Cava: 1.5 cm Findings: Left Ventricle: Normal size left ventricle. No LV hypertrophy. Normal global systolic LV function. EF is 58 %. No regional wall motion abnormality. Right Ventricle: Normal size right ventricle. Normal RV function. Left Atrium: The left atrium is mildly dilated. Right Atrium: The right atrium is normal in size. Mitral Valve: The mitral valve is normal in appearance and function. Mild mitral valve leaflet calcification is present. Mild mitral valve regurgitation is present. No mitral stenosis is present. Aortic Valve: Aortic sclerosis is present. Moderate to severe aortic regurgitation. No aortic valve stenosis is present. The aortic valve is trileaflet. Tricuspid Valve: The tricuspid valve is normal in appearance and function. Moderate tricuspid regurgitation is present. The pulmonary artery pressure is normal. Right ventricular systolic pressure measures 38mmHg. Pulmonic Valve: The pulmonic valve is normal in appearance and function. There is no pulmonic regurgitation seen. Aorta: The aorta is normal. Normal size aortic root measuring 3.1 cm. Normal size ascending aorta measuring 3.0 cm. IVC: The IVC is normal sized. Pericardium: No pericardial effusion. No pleural effusion. (No Signature Object) Patient: BRYN CHERY Study Date: 11/18/2017 Page 2 of 2 07:36 AM [id number]
[2017-11-18] MEDS: METHENAMINE MANDELATE 500 MG PO SCH ×2 (11:38→20:24)
--- NOTE | 2017-11-18 14:04 | HOSPPROG ---
Hospitalist Progress Note Assessment/Plan: 82 yo F w metastatic lung cancer here w new AF, uti, falls uti: ceftriaxone klebsiella await sensitivity AF: new echo w mild decrement in LVEF, mitral regurg change dilt to long acting eliquis falls: pt/ot lung CA; radiation proph: anticoagulated dispo: inpt Subjective: tele: af in 90's-low 100's (interp by me). CT- no pe ()images reviewed by me) Objective: Vital Signs Temp Pulse Resp BP Pulse Ox 36.6 C 113 H 20 129/68 H 94 11/18/17 11:26 11/18/17 11:26 11/18/17 11:26 11/18/17 11:26 11/18/17 11:26 Laboratory Results 11/18/17 04:50 11/18/17 04:50 11/17/17 11/18/17 11/19/17 05:59 05:59 05:59 Intake Total 500 50 Balance 500 50 - Physical Exam Constitutional: no apparent distress, appears nourished, chronically ill appearing Eyes: PERRL, anicteric sclera Ears, Nose, Mouth, Throat: moist mucous membranes, hearing normal Cardiovascular: irregularly irregular Respiratory: no respiratory distress, no rales or rhonchi Gastrointestinal: normoactive bowel sounds, soft, non-tender abdomen Genitourinary: no bladder fullness, No blackmon in urethra Skin: warm, normal color Musculoskeletal: full muscle strength Neurologic: AAOx3 Psychiatric: interacting appropriately ICD10 Worksheet Patient Problems: Problems Problem Status Onset Atrial fibrillation Acute Hyponatremia Acute Weakness Acute Primary localized osteoarthritis of left knee Acute
--- NOTE | 2017-11-18 14:33 | ASMTCMCOM ---
CM Note CM Note Notes: Patient admitted with new onset A Fib, falls, UTI. She is also undergoing radiation for stage IV squamous cell carcinoma of the lung. She has a history of breast cancer. Patient lives independently, is , and has one daughter who lives locally. PT/OT have been ordered, and the evals will help us with discharge planning. Case Management will follow. Date Signed: 11/18/2017 02:32 PM Electronically Signed By:Kimi Araiza RN
[2017-11-18] MEDS ORDERED: MAGNESIUM HYDROXIDE 30 ML UDCUP PO PRN (14:38)
[2017-11-18] MEDS ORDERED: LACTULOSE 20 GM/30 ML UDCUP PO PRN (14:38)
[2017-11-18] MEDS ORDERED: BISACODYL 10 MG SUPP PR PRN (14:38)
[2017-11-18] MEDS ORDERED: POLYETHYLENE GLYCOL 3350 17 GM PKT PO PRN (14:38)
--- NOTE | 2017-11-18 14:49 | SOAPPROG ---
SOAP Progress Note Assessment/Plan: A/P: * Generalized weakness, falls: multifactorial (UTI, hyponatremia, ?component of dementia). Will need SNF. * UTI: Klebsiella, on abx. * Hyponatremia: improving. * Stage IV squamous cell lung cancer: receiving pembrolizumab and palliative RT to retroperitoneal metastasis (pain). - has approximately 3 more RT treatments * h/o St II breast cancer, 2004. 11/18/17 14:51 Subjective: S: no change, weak, not enthused about rehab but understands the purpose. O: VS reviewed. Gen: fatigued-appearing elderly woman, NAD. Lungs: breathing comfortably. CV: no edema. Microbiology 11/17/17 12:40 Urine,Clean Catch Urine Culture - Preliminary Klebsiella Oxytoca/Raoutella [place] Types Laboratory Tests 11/18/17 11/18/17 04:50 04:50 WBC 9.17 Hgb 10.8 L Plt Count 314 Sodium 127 L Creatinine 0.5 L Objective: Vital Signs Temp Pulse Resp BP Pulse Ox 36.6 C 113 H 20 129/68 H 94 11/18/17 11:26 11/18/17 11:26 11/18/17 11:26 11/18/17 11:26 11/18/17 11:26 Laboratory Results 11/18/17 04:50 11/18/17 04:50 11/17/17 11/18/17 11/19/17 05:59 05:59 05:59 Intake Total 500 50 Balance 500 50 ICD10 Worksheet Patient Problems: Problems Problem Status Onset Atrial fibrillation Acute Hyponatremia Acute Weakness Acute Primary localized osteoarthritis of left knee Acute
[2017-11-18] MEDS: ACETAMINOPHEN 500 MG TAB PO PRN (16:45)
--- NOTE | 2017-11-18 17:16 | PDMN ---
Medical Necessity Medical necessity: C/M review: est. > 2 MN LOS for eval and TX of acute and persistent new atrial fibrillation, urinary tract infection - urine culture grew out Klebsiella, await sensitivity report, weakness, requiring ongoing IV Ceftriaxone, cardiac monitoring, change oral diltiazem to long acting form, oral Eliquis, comorbid history of falls prior to this admission, metastatic lung cancer treated with radiation per 11/18/2017 Hospitalist progress note.
[2017-11-18] MEDS: SENNOSIDES/DOCUSATE SODIUM TAB PO SCH (20:21)
[2017-11-18] MEDS: DILTIAZEM CD 120 MG CAP PO SCH (20:31)
[2017-11-19] MEDS: oxyCODONE IR 5 MG TAB PO PRN ×3 (05:05→22:38)
[2017-11-19] MEDS: DILTIAZEM CD 120 MG CAP PO SCH (08:46)
[2017-11-19] MEDS: PANTOPRAZOLE SODIUM 40 MG TAB PO SCH (08:46)
[2017-11-19] MEDS: SENNOSIDES/DOCUSATE SODIUM TAB PO SCH ×2 (08:46→19:50)
[2017-11-19] MEDS: METHENAMINE MANDELATE 500 MG PO SCH ×2 (08:47→19:55)
[2017-11-19] MEDS: CETIRIZINE 10 MG TAB PO SCH (08:47)
[2017-11-19] MEDS: APIXABAN 2.5 MG TAB PO SCH ×2 (08:47→19:51)
--- NOTE | 2017-11-19 11:30 | SOAPPROG ---
SOAP Progress Note Assessment/Plan: Assessment: 1. NSCLC with retroperitoneal and soft tissue mets 2. UTI 3. A fib 4. Falls Plan: - continue palliative RT for RP nodes (3 fractions left) - SNF placement when feasible - will be due for another dose of Keytruda in 3 weeks. 11/19/17 11:27 Subjective: feeling tired. Objective: exam: NAD Lungs CTAB CV RRR no MGR Abd: +BS NT ND Ext: no edema Neuro: a+ox3 Vital Signs Temp Pulse Resp BP Pulse Ox 37.1 C 96 16 118/78 96 11/19/17 11:01 11/19/17 11:01 11/19/17 11:01 11/19/17 11:01 11/19/17 11:01 Laboratory Results 11/18/17 04:50 11/18/17 04:50 11/18/17 11/19/17 11/20/17 05:59 05:59 05:59 Intake Total 500 225 Balance 500 225 ICD10 Worksheet Patient Problems: Problems Problem Status Onset Atrial fibrillation Acute Hyponatremia Acute Weakness Acute Primary localized osteoarthritis of left knee Acute
--- NOTE | 2017-11-19 12:26 | HOSPPROG ---
Hospitalist Progress Note Assessment/Plan: 82 yo F w metastatic lung cancer here w new AF, uti, falls uti: ceftriaxone klebsiella day 3/ AF: new echo w mild decrement in LVEF, mitral regurg, aortic regurg change dilt to long acting eliquis she may be a poor candidate for anticoag snf given fall risk falls: pt/ot lung CA; radiation proph: anticoagulated dispo: inpt Subjective: case d/w dr lawler. tele: af at about 100 (interp by me) Objective: Vital Signs Temp Pulse Resp BP Pulse Ox 37.1 C 96 16 118/78 96 11/19/17 11:01 11/19/17 11:01 11/19/17 11:01 11/19/17 11:01 11/19/17 11:01 Laboratory Results 11/18/17 04:50 11/18/17 04:50 11/18/17 11/19/17 11/20/17 05:59 05:59 05:59 Intake Total 500 225 Balance 500 225 - Physical Exam Constitutional: no apparent distress, appears nourished Eyes: PERRL, anicteric sclera Ears, Nose, Mouth, Throat: moist mucous membranes, hearing normal Cardiovascular: irregularly irregular, other (intermittent tachy) Respiratory: no respiratory distress, no rales or rhonchi Gastrointestinal: normoactive bowel sounds, soft, non-tender abdomen Genitourinary: no bladder fullness, No blackmon in urethra Skin: warm, normal color Musculoskeletal: full muscle strength ICD10 Worksheet Patient Problems: Problems Problem Status Onset Atrial fibrillation Acute Hyponatremia Acute Weakness Acute Primary localized osteoarthritis of left knee Acute
--- NOTE | 2017-11-19 16:26 | ASMTCMCOM ---
CM Note CM Note Notes: Spoke w/pt and family re; dc poc. PT/OT recommend SNF. Pt has been to in the past, that is their 1st choice. They also want referrals sent to [facility] [place]. DC Plan: SNF Date Signed: 11/19/2017 01:16 PM Electronically Signed By:Bibiana Reyes RN
[2017-11-20] MEDS: ACETAMINOPHEN 500 MG TAB PO PRN ×2 (00:57→16:11)
[2017-11-20] MEDS: oxyCODONE IR 5 MG TAB PO PRN ×3 (03:36→21:39)
[2017-11-20] MEDS: PANTOPRAZOLE SODIUM 40 MG TAB PO SCH (09:29)
[2017-11-20] MEDS: DILTIAZEM CD 120 MG CAP PO SCH (09:29)
[2017-11-20] MEDS: SENNOSIDES/DOCUSATE SODIUM TAB PO SCH ×2 (09:30→21:03)
[2017-11-20] MEDS: CETIRIZINE 10 MG TAB PO SCH (09:30)
[2017-11-20] MEDS: APIXABAN 2.5 MG TAB PO SCH ×2 (09:30→21:03)
[2017-11-20] MEDS: METHENAMINE MANDELATE 500 MG PO SCH ×2 (09:46→21:05)
--- NOTE | 2017-11-20 12:41 | SOAPPROG ---
SOAP Progress Note Assessment/Plan: Assessment: 1. NSCLC with retroperitoneal and soft tissue mets 2. UTI 3. A fib 4. Falls Plan: - continue palliative RT for RP nodes (3 fractions left) - SNF placement when feasible - will be due for another dose of Keytruda in 3 weeks. 11/19/17 11:27 Subjective: feels well. Objective: exam unchanged Vital Signs Temp Pulse Resp BP Pulse Ox 36.8 C 111 H 20 121/68 H 90 L 11/20/17 11:54 11/20/17 11:54 11/20/17 11:54 11/20/17 11:54 11/20/17 11:54 Laboratory Results 11/18/17 04:50 11/18/17 04:50 11/19/17 11/20/17 11/21/17 05:59 05:59 05:59 Intake Total 225 150 240 Balance 225 150 240 ICD10 Worksheet Patient Problems: Problems Problem Status Onset Atrial fibrillation Acute Hyponatremia Acute Weakness Acute Primary localized osteoarthritis of left knee Acute
--- NOTE | 2017-11-20 13:32 | HOSPPROG ---
Hospitalist Progress Note Assessment/Plan: 82-year-old with stage IV squamous cell cancer of the lung is admitted with increased weakness and falls. She is found to be in new onset AFib and has hyponatremia. # stage IV squamous cell lung cancer with retroperitoneal and soft tissue metastases * Receiving palliative radiation therapy to the retroperitoneal Mets, approximately 3 more treatments prior to dispo * Due for pembrolizumab in around 3 weeks * Appreciate Oncology followup # AFib, new onset in asymptomatic * Echo done shows mild decrease in LV EF with mitral and aortic regurg * Continue long-acting diltiazem * Eliquis for anticoagulation # urinary tract infection, ceftriaxone day 4/ # hyponatremia, likely multifactorial including poor nutrition with minimal protein intake * Continue to monitor * Consider fluid restriction if does not improve * Encourage patient to eat more protein, she is resistant to any protein drinks # weakness and falls, due to deconditioning and multifactorial * Treat UTI * Try to correct sodium * Push p.o. Intake * AFib rate controlled, chronic anticoagulation may not be appropriate given for ongoing fall risk Subjective: Patient new to me and chart reviewed. Significant memory deficits noted on my interview, refuses to eat any Ensure or protein drinks, denies any significant complaints at this time Objective: Vital Signs Temp Pulse Resp BP Pulse Ox 36.8 C 111 H 20 121/68 H 90 L 11/20/17 11:54 11/20/17 11:54 11/20/17 11:54 11/20/17 11:54 11/20/17 11:54 Laboratory Results 11/18/17 04:50 11/18/17 04:50 11/19/17 11/20/17 11/21/17 05:59 05:59 05:59 Intake Total 225 150 240 Balance 225 150 240 - Physical Exam Constitutional: not in pain, chronically ill appearing Eyes: PERRL Ears, Nose, Mouth, Throat: moist mucous membranes, hearing normal Cardiovascular: regular rate and rhythym, systolic murmur Respiratory: no respiratory distress, reduced air movement Gastrointestinal: soft, non-tender abdomen Genitourinary: no bladder fullness Skin: warm, No normal color (Slightly pale) Musculoskeletal: generalized weakness Neurologic: No facial droop Psychiatric: interacting appropriately ICD10 Worksheet Patient Problems: Problems Problem Status Onset Atrial fibrillation Acute Hyponatremia Acute Weakness Acute Primary localized osteoarthritis of left knee Acute
[2017-11-21] MEDS: oxyCODONE IR 5 MG TAB PO PRN ×3 (02:25→14:33)
[2017-11-21] MEDS: ACETAMINOPHEN 500 MG TAB PO PRN (02:26)
[2017-11-21 05:01] LABS: PLATELET COUNT 338 10^3/uL (150-400)
--- NOTE | 2017-11-21 08:33 | HOSPPROG ---
Hospitalist Progress Note Assessment/Plan: 82-year-old with stage IV squamous cell cancer of the lung is admitted with increased weakness and falls. She is found to be in new onset AFib and has hyponatremia. # stage IV squamous cell lung cancer with retroperitoneal and soft tissue metastases. Having significant pain in abdomen due to mets. * Receiving palliative radiation therapy to the retroperitoneal Mets, approximately 3 more treatments prior to dispo * Due for pembrolizumab in around 3 weeks * Appreciate Oncology followup # AFib, new onset in asymptomatic * Echo done shows mild decrease in LV EF at 58% with mitral and mod to severe aortic regurg * Continue long-acting diltiazem, will increase to 180 daily and follow BP, may need to change to dig. * Eliquis for anticoagulation # urinary tract infection, ceftriaxone day 11/12 # hyponatremia, likely multifactorial including poor nutrition with minimal protein intake, lower today. * Continue to monitor * add fluid restriction and salt tabs * check urine lytes and osm. * Encourage patient to eat more protein, she is resistant to any protein drinks # weakness and falls, due to deconditioning and multifactorial * Treat UTI * Try to correct sodium * Push p.o. Intake * AFib rate controlled, chronic anticoagulation may not be appropriate given for ongoing fall risk Subjective: pt complains of pain in abdomen, trying to eat well. does not have any symptoms from afib. Objective: Vital Signs Temp Pulse Resp BP Pulse Ox 36.6 C 101 H 18 110/58 L 94 11/21/17 07:37 11/21/17 07:37 11/21/17 07:37 11/21/17 07:37 11/21/17 07:37 Laboratory Results 11/21/17 04:40 11/21/17 04:40 11/20/17 11/21/17 11/22/17 05:59 05:59 05:59 Intake Total 150 720 Balance 150 720 - Physical Exam Constitutional: chronically ill appearing, uncomfortable Eyes: PERRL, EOMI Ears, Nose, Mouth, Throat: moist mucous membranes, hearing normal, ears appear normal Cardiovascular: systolic murmur, irregularly irregular, tachycardia Respiratory: no respiratory distress, reduced air movement Gastrointestinal: tenderness (diffuse, more in lower abdomen) Skin: warm, No normal color (pale) Musculoskeletal: generalized weakness Neurologic: No facial droop Psychiatric: interacting appropriately, not anxious ICD10 Worksheet Patient Problems: Problems Problem Status Onset Primary localized osteoarthritis of left knee Acute Atrial fibrillation Acute Hyponatremia Acute Weakness Acute
[2017-11-21] MEDS: DILTIAZEM CD 180 MG CAP PO SCH (09:58)
[2017-11-21] MEDS: CETIRIZINE 10 MG TAB PO SCH (09:58)
[2017-11-21] MEDS: APIXABAN 2.5 MG TAB PO SCH ×2 (09:59→21:30)
[2017-11-21] MEDS: SENNOSIDES/DOCUSATE SODIUM TAB PO SCH ×2 (09:59→21:30)
[2017-11-21] MEDS: PANTOPRAZOLE SODIUM 40 MG TAB PO SCH (09:59)
[2017-11-21] MEDS: METHENAMINE MANDELATE 500 MG PO SCH ×2 (10:18→21:54)
--- NOTE | 2017-11-21 11:40 | SOAPPROG ---
SOAP Progress Note Assessment/Plan: Assessment/Plan: 1. NSCLC w retroperitoneal and soft tissue mets 2. UTI 3. A fib 4. HypoNa 5. Falls Plan: continue palliative XRT for RP nodes (3 fractions left) SNF placement when feasible due for another dose of keytruda in 3 weeks 11/21/17 11:37 Subjective: No acute events still c/p pain in abdomen Objective: Vital Signs Temp Pulse Resp BP Pulse Ox 36.8 C 103 H 17 111/83 H 94 11/21/17 11:30 11/21/17 11:30 11/21/17 11:30 11/21/17 11:30 11/21/17 11:30 Laboratory Results 11/21/17 04:40 11/21/17 04:40 11/20/17 11/21/17 11/22/17 05:59 05:59 05:59 Intake Total 150 720 Balance 150 720 Gen - NAD HEENT - anicteric CV - RRR Resp - CTAB Abd - soft, BS+ Ext - no sig edema ICD10 Worksheet Patient Problems: Problems Problem Status Onset Atrial fibrillation Acute Hyponatremia Acute Weakness Acute Primary localized osteoarthritis of left knee Acute
--- NOTE | 2017-11-21 15:26 | ASMTCMCOM ---
CM Note CM Note Notes: CM spoke w/ Kimi RN regarding d/c POC. CM set up [facility] transport for pt to go to [facility] for radiation today for 4PM. Pts original appointment was scheduled for 1:30PM but [facility] could not accommodate that transport time. CM completed PCS form. CM met w/ pt and and informed them of the radiation times. [facility] Samaniego, [facility] and [facility] all have said no. CM spoke w/ Henna at [facility] and she reports that she will be finished w/ her round of radiation this Tuesday. However, pts oncologist would like to start radiation on a different area starting next week and will most likely need to go M-F. Oncologist will discuss w/ pt after her radiation therapies today. CM left a msg for Katherine at [facility] to see if she will be able to accommodate someone with radiation therapies daily. CM to follow. Plan: TBD Date Signed: 11/21/2017 03:26 PM Electronically Signed By:EAN Kelly
[2017-11-21] MEDS: SODIUM CHLORIDE 1,000 MG TAB PO SCH (18:24)
[2017-11-22] MEDS: ACETAMINOPHEN 500 MG TAB PO PRN ×2 (02:28→20:59)
[2017-11-22] MEDS: oxyCODONE IR 5 MG TAB PO PRN ×3 (02:29→17:52)
[2017-11-22] MEDS: DILTIAZEM CD 180 MG CAP PO SCH (08:32)
[2017-11-22] MEDS: APIXABAN 2.5 MG TAB PO SCH ×2 (08:33→20:59)
[2017-11-22] MEDS: CETIRIZINE 10 MG TAB PO SCH (08:33)
[2017-11-22] MEDS: PANTOPRAZOLE SODIUM 40 MG TAB PO SCH (08:33)
[2017-11-22] MEDS: SENNOSIDES/DOCUSATE SODIUM TAB PO SCH ×2 (08:33→20:58)
[2017-11-22] MEDS: SODIUM CHLORIDE 1,000 MG TAB PO SCH ×2 (08:33→17:52)
[2017-11-22] MEDS: METHENAMINE MANDELATE 500 MG PO SCH ×2 (09:58→21:15)
--- NOTE | 2017-11-22 12:52 | SOAPPROG ---
SOAP Progress Note Assessment/Plan: Assessment/Plan: 1. NSCLC w retroperitoneal and soft tissue mets 2. UTI 3. A fib 4. HypoNa 5. Falls Plan: continue palliative XRT for RP nodes (2 fractions left) SNF placement when feasible but I recommended palliative consult yesterday as I feel hospice would be appropriate due for another dose of keytruda in <3 weeks but she continues to be weak d/c daughter yesterday 11/21/17 11:37 11/22/17 12:50 Subjective: No acute events reported Pt in XRT now Objective: Vital Signs Temp Pulse Resp BP Pulse Ox 37 C 97 20 110/65 100 11/22/17 07:29 11/22/17 11:08 11/22/17 11:08 11/22/17 11:08 11/22/17 11:08 Laboratory Results 11/21/17 04:40 11/22/17 05:02 11/21/17 11/22/17 11/23/17 05:59 05:59 05:59 Intake Total 720 850 Output Total 600 100 Balance 720 250 -100 not examined today in XRT ICD10 Worksheet Patient Problems: Problems Problem Status Onset Atrial fibrillation Acute Hyponatremia Acute Weakness Acute Primary localized osteoarthritis of left knee Acute
--- NOTE | 2017-11-22 13:08 | HOSPPROG ---
Hospitalist Progress Note Assessment/Plan: 82-year-old with stage IV squamous cell cancer of the lung is admitted with increased weakness and falls. She is found to be in new onset AFib and has hyponatremia. # stage IV squamous cell lung cancer with retroperitoneal and soft tissue metastases. Having significant pain in abdomen due to mets. * Receiving palliative radiation therapy to the retroperitoneal Mets, approximately 2 more treatments prior to dispo * Due for pembrolizumab in around 3 weeks * Appreciate Oncology followup * Would likely need SNF after DC * Discussed Palliative Care consult with patient, she seemed ambivalent about it , but willing to meet. # AFib, new onset in asymptomatic * Echo done shows mild decrease in LV EF at 58% with mitral and mod to severe aortic regurg * Continue long-acting diltiazem, will increase to 180 daily and follow BP, may need to change to dig. * Eliquis for anticoagulation # urinary tract infection, ceftriaxone day 11/12 # hyponatremia, likely multifactorial including poor nutrition with minimal protein intake, lower today. Continues to eat very little * Continue to monitor * add fluid restriction and salt tabs * check urine lytes and osm. * Encourage patient to eat more protein, she is resistant to any protein drinks # weakness and falls, due to deconditioning and multifactorial * Treat UTI * Try to correct sodium * Push p.o. Intake * AFib rate controlled, chronic anticoagulation may not be appropriate given for ongoing fall risk Subjective: ate a little smoothie today, not hungry and food doesn't taste good. Objective: Vital Signs Temp Pulse Resp BP Pulse Ox 37 C 97 20 110/65 100 11/22/17 07:29 11/22/17 11:08 11/22/17 11:08 11/22/17 11:08 11/22/17 11:08 Laboratory Results 11/21/17 04:40 11/22/17 05:02 11/21/17 11/22/17 11/23/17 05:59 05:59 05:59 Intake Total 720 850 Output Total 600 100 Balance 720 250 -100 - Physical Exam Constitutional: chronically ill appearing Cardiovascular: regular rate and rhythym Respiratory: no respiratory distress Gastrointestinal: tenderness ICD10 Worksheet Patient Problems: Problems Problem Status Onset Primary localized osteoarthritis of left knee Acute Atrial fibrillation Acute Hyponatremia Acute Weakness Acute
[2017-11-23] MEDS: oxyCODONE IR 5 MG TAB PO PRN ×5 (01:03→23:19)
[2017-11-23] MEDS: ACETAMINOPHEN 500 MG TAB PO PRN ×3 (05:01→23:19)
[2017-11-23] MEDS: SENNOSIDES/DOCUSATE SODIUM TAB PO SCH ×2 (07:50→20:12)
[2017-11-23] MEDS: SODIUM CHLORIDE 1,000 MG TAB PO SCH ×2 (07:51→17:50)
[2017-11-23] MEDS: APIXABAN 2.5 MG TAB PO SCH ×2 (07:51→20:12)
[2017-11-23] MEDS: PANTOPRAZOLE SODIUM 40 MG TAB PO SCH (07:51)
[2017-11-23] MEDS: CETIRIZINE 10 MG TAB PO SCH (07:52)
[2017-11-23] MEDS: METHENAMINE MANDELATE 500 MG PO SCH ×2 (07:58→20:12)
[2017-11-23] MEDS: DILTIAZEM CD 180 MG CAP PO SCH (07:59)
--- NOTE | 2017-11-23 09:54 | HOSPPROG ---
Hospitalist Progress Note Assessment/Plan: 82-year-old with stage IV squamous cell cancer of the lung is admitted with increased weakness and falls. She was found to be in new onset AFib and has hyponatremia. Today is my first encounter with the patient, chart reviewed, discussed her care with Dr Ydoer # stage IV squamous cell lung cancer with retroperitoneal and soft tissue metastases. Having significant pain in abdomen due to mets. * increased her long acting OxyContin from 10 mg bid to 15 mg bid * Receiving palliative radiation therapy to the retroperitoneal Mets, approximately 2 more treatments prior to dispo * Due for pembrolizumab in around 3 weeks * Appreciate Oncology followup * Would likely need SNF after DC # AFib, new onset in asymptomatic * Echo done shows mild decrease in LV EF at 58% with mitral and mod to severe aortic regurg * Continue long-acting diltiazem, will increase to 180 daily and follow BP. BP tolerating well. * Eliquis for anticoagulation # urinary tract infection * full treatment given w Ceftriaxone # hyponatremia, likely multifactorial including poor nutrition with minimal protein intake, lower today. Continues to eat very little * Continue to monitor * add fluid restriction and salt tabs * recheck urine studies * Encourage patient to eat more protein # weakness and falls, * multifactorial, low Na, cancer, poor intake * AFib rate controlled, chronic anticoagulation may not be appropriate given for ongoing fall risk #plan: spent time w the patient and her daughter discussing her Code status. The patient wants to think about it more. We discussed the patient's goals, that treatment is only palliative, not curative. She says she wants to keep living, but explained to her that often supportive care is best. Appreciate Reyes alex Palliative care team seeing her. Patient has requested hospice. This has been ordered. Patient has a long hx of smoking and feels short of breath, added duonebs. Subjective: Patient has c/o pain in her abdomen Objective: Vital Signs Temp Pulse Resp BP Pulse Ox 36.5 C 85 18 100/68 90 L 11/23/17 07:32 11/23/17 09:33 11/23/17 07:32 11/23/17 09:33 11/23/17 07:32 Laboratory Results 11/21/17 04:40 11/22/17 05:02 11/22/17 11/23/17 11/24/17 05:59 05:59 05:59 Intake Total 850 500 Output Total 600 350 Balance 250 150 - Physical Exam Constitutional: chronically ill appearing, uncomfortable, other (thin) Ears, Nose, Mouth, Throat: hearing normal Cardiovascular: irregularly irregular Respiratory: no respiratory distress, reduced air movement Skin: warm Musculoskeletal: generalized weakness Neurologic: AAOx3 Psychiatric: interacting appropriately ICD10 Worksheet Patient Problems: Problems Problem Status Onset Atrial fibrillation Acute Hyponatremia Acute Weakness Acute Primary localized osteoarthritis of left knee Acute
[2017-11-23] MEDS: IPRATROPIUM/ALBUTEROL 3 ML DEYVIAL IH SCH ×3 (11:30→23:18)
--- NOTE | 2017-11-23 11:53 | ASMTCMCOM ---
CM Note CM Note Notes: Pt had palliative consult today, pt and famiy would like to engage hospice, they would like a referral sent to [facility]. CM faxed referral via [employer]. DC Plan: Hospice + home care (private pay) Date Signed: 11/23/2017 11:52 AM Electronically Signed By:Bibiana Reyes RN
--- NOTE | 2017-11-23 14:14 | SOAPPROG ---
SOAP Progress Note Assessment/Plan: Assessment/Plan: 1. 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 UTI 3. A fib 4. HypoNa 5. Falls Plan: continue palliative XRT for RP nodes (last day today) Pt has decided on hospice and I feel very appropriate given rapid progression of disease No further therapy to be given Discussed hypoNa and possibility that she may have developed brain mets - pt does not want any further scans as would not change treatment 11/23/17 14:12 Subjective: No acute events Objective: Vital Signs Temp Pulse Resp BP Pulse Ox 36.6 C 111 H 20 124/58 H 92 11/23/17 11:54 11/23/17 11:54 11/23/17 11:54 11/23/17 11:54 11/23/17 11:54 Laboratory Results 11/21/17 04:40 11/22/17 05:02 11/22/17 11/23/17 11/24/17 05:59 05:59 05:59 Intake Total 850 500 Output Total 600 350 Balance 250 150 Gen - sitting in chair, pain controlled ICD10 Worksheet Patient Problems: Problems Problem Status Onset Atrial fibrillation Acute Hyponatremia Acute Weakness Acute Primary localized osteoarthritis of left knee Acute
[2017-11-23] MEDS ORDERED: CALCIUM CARBONATE 500 MG CHEWABLE TAB PO PRN ×2 (14:45→14:51)
[2017-11-23] MEDS: oxyCODONE CR 15 MG TAB PO SCH (20:12)
[2017-11-24] MEDS: oxyCODONE IR 5 MG TAB PO PRN ×3 (03:36→12:47)
[2017-11-24] MEDS: IPRATROPIUM/ALBUTEROL 3 ML DEYVIAL IH SCH ×2 (05:32→11:46)
[2017-11-24] MEDS: SENNOSIDES/DOCUSATE SODIUM TAB PO SCH (08:17)
[2017-11-24] MEDS: PANTOPRAZOLE SODIUM 40 MG TAB PO SCH (08:17)
[2017-11-24] MEDS: APIXABAN 2.5 MG TAB PO SCH (08:17)
[2017-11-24] MEDS: oxyCODONE CR 15 MG TAB PO SCH (08:18)
[2017-11-24] MEDS: CETIRIZINE 10 MG TAB PO SCH (08:18)
[2017-11-24] MEDS: SODIUM CHLORIDE 1,000 MG TAB PO SCH (08:18)
[2017-11-24] MEDS: DILTIAZEM CD 180 MG CAP PO SCH (08:25)
[2017-11-24] MEDS: METHENAMINE MANDELATE 500 MG PO SCH (08:29)
--- NOTE | 2017-11-24 11:26 | PDIAF ---
- Diagnosis Diagnosis: falls Code Status: Do Not Resuscitate - Medication Management Discharge Medications: Medications to Continue on Transfer Cetirizine [ZyrTEC 10 mg (*)] 10 mg PO DAILY 05/23/16 [Last Taken 11/17/17] Methenamine Mandelate [METHENAMINE MANDELATE] 500 mg PO BID 04/06/17 [Last Taken 11/17/17] Esomeprazole Mag Trihydrate [Nexium] 40 mg PO DAILY 05/10/17 [Last Taken ] Acetaminophen [Tylenol ES 500 mg (*)] 1,000 mg PO Q8HRS PRN 05/30/17 [Last Taken 09/12/17] Prochlorperazine Maleate [Compazine 10mg (*)] 10 mg PO DAILY PRN 11/17/17 [Last Taken Unknown] oxyCODONE HCL [Oxycontin] 10 mg PO BID 11/17/17 [Last Taken 11/17/17] oxyCODONE IR [Oxycodone Ir (*)] 5 mg PO Q4HRS PRN 11/17/17 [Last Taken 11/17/17 09:00] Diltiazem Cd [Cardizem ER Q24hr] 180 mg PO DAILY cap 11/24/17 [Last Taken Unknown] Ipratropium/Albuterol [Duoneb (*)] 3 ml IH Q6HRS deyvial 11/24/17 [Last Taken Unknown] Ondansetron Odt [Zofran Odt 4 mg (*)] 4 mg PO Q4HRS PRN tab 11/24/17 [Last Taken Unknown] Polyethylene Glycol 3350 [Miralax 17 gm (*)] 17 gm PO DAILY PRN pkt 11/24/17 [ Last Taken Unknown] Sennosides/Docusate Sodium [Senokot-S] 1 - 2 tab PO BID tab 11/24/17 [Last Taken Unknown] Sodium Chloride [Salt Tablet] 1,000 mg PO BIDMEAL tab 11/24/17 [Last Taken Unknown] Discharge Medications: Refer to the Discharge Home Medication list for PRN reason. PICC Care - Routine: N/A - Orders Services needed: Registered Nurse Isolation Type: None Diet Recommendation: no restrictions on diet - Follow Up Care Current Providers and Referrals: Krystal Yarbrough MD [Primary Care Provider] - As per Instructions
[2017-11-24 11:43] VITALS: BP 103/67
--- NOTE | 2017-11-24 12:31 | ASMTLACE ---
LACE Length of stay for Answers: 4-6 days current admission Acuity / Level of Answers: Yes Care: Did the patient have an inpatient admission? Comorbidities - select Answers: Any tumor (including all that apply lymphoma or leukemia) # of Emergency department Answers: 1-2 visits in the last 6 months Score: 10 Date Signed: 11/24/2017 12:30 PM Electronically Signed By:Bibiana Reyes RN
--- NOTE | 2017-11-24 12:56 | SOAPPROG ---
SOAP Progress Note Assessment/Plan: Assessment/Plan: 1. 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 UTI 3. A fib 4. HypoNa 5. Falls Plan: completed palliative XRT for RP nodes; will get palliative XRT to left femur tomorrow Pt has decided on hospice and I feel very appropriate given rapid progression of disease discharge today No further therapy to be given Discussed hypoNa and possibility that she may have developed brain mets - pt does not want any further scans as would not change treatment 11/23/17 14:12 11/24/17 12:53 Subjective: No acute events pain better controlled Objective: Vital Signs Temp Pulse Resp BP Pulse Ox 37.1 C 128 H 18 103/67 93 11/24/17 11:41 11/24/17 11:41 11/24/17 11:41 11/24/17 11:41 11/24/17 11:41 Laboratory Results 11/21/17 04:40 11/22/17 05:02 11/23/17 11/24/17 11/25/17 05:59 05:59 05:59 Intake Total 500 600 Output Total 350 800 400 Balance 150 -200 -400 somewhat confused today ICD10 Worksheet Patient Problems: Problems Problem Status Onset Atrial fibrillation Acute Hyponatremia Acute Weakness Acute Primary localized osteoarthritis of left knee Acute
--- NOTE | 2017-11-24 13:48 | GDS ---
[f rep st] DISCHARGE SUMMARY DISCHARGE DIAGNOSES: 1. Falls. 2. Weakness. 3. Stage IV squamous cell lung cancer. 4. Atrial fibrillation. 5. Urinary tract infection. 6. Hyponatremia. CONSULTATIONS: Oncology. STUDIES AND PROCEDURES: CT angio of the chest. PHYSICAL EXAM: GENERAL: The patient is alert. VITAL SIGNS: Afebrile at 37.1. Pulse is 120. Resp iratory rate is 18. Blood pressure is 103/67. She is saturating 93% on room air. I have seen and e valuated the patient on the day of discharge. HOSPITAL COURSE: 1. The patient is an 82-year-old female who has a history of squamous cell carcinoma. She was broug ht to the hospital secondary to weakness. She was evaluated and diagnosed with stage IV squamous jorge l lung cancer with retroperitoneal and soft tissue metastases. The patient is suffering from signifi cant discomfort secondary to her metastatic process. She has been treated with pain medications duri ng this hospitalization. She received a consultation from Oncology. She has completed palliative ra diation. No further treatment is recommended at this time. 2. Atrial fibrillation. Echocardiogram notes an EF of 58%. Her medications have been continued wit h diltiazem. Her Eliquis has been discontinued in the setting of the patient going to hospice. 3. Urinary tract infection. This has been treated with Rocephin. No further signs at present. 4. Hyponatremia. This is multifactorial. The patient's salt tablets will be continued. 5. Weakness and falls. residential is recommended. DISPOSITION: The patient and her family had a hospice consultation today. They have opted to be dis charged to hospice with further recommendations in the outpatient setting and comfort. I have discus sed this with Oncology, as well as the hospice care provider. They are all in agreement with this pl an. DISCHARGE MEDICATIONS: Please refer to EMR form. The patient has been continued on Cardizem, as wel l as her other previously prescribed home medications. Will defer to hospice for further medication adjustments. I have spent greater than 35 minutes in the care, coordination, and management of this patient's disp osition. /[id number]/MODL
--- NOTE | 2017-11-25 14:05 | ASDISCHSUM ---
Discharge Information Plan Status:Hospice-Inpatient Medically Cleared to Leave: Discharge Date:11/24/2017 01:15 PM D/C Disposition:Hospice Facility ADT D/C Disposition:Hospice Facility Projected Discharge Date:11/20/2017 11:00 AM Transportation at D/C:ALS/BLS Discharge Delay Reason: Follow-Up Date:11/20/2017 11:00 AM Discharge Slot: Final Diagnosis: Placement Information Referral Type:*Alf/SNF Referral ID:[id number] Provider Name: Address 1: Phone Number: Address 2: Fax Number: City: Selection Factors: State: Referral Type:*Hospice Referral ID:[id number] Provider [facility] Address 1:[address] Address 2: City:[place] Selection Factors: State:[place] Patient Contact Information Contact Name:NASRA Relationship: Address:[address] City:[place] Alternate Phone: State/Zip Code:[place] [address] Email: Financial Information Financial Class:Medicare Primary Plan Desc:MEDICARE INPATIENT Primary Plan Number:[id number] Secondary Plan Desc:NORMA MERRILL Secondary Plan Number:[id number] Assessment Information LACE LACE Length of stay for Answers: 4-6 days current admission Acuity / Level of Answers: Yes Care: Did the patient have an inpatient admission? Comorbidities - select Answers: Any tumor (including all that apply lymphoma or leukemia) # of Emergency department Answers: 1-2 visits in the last 6 months Score: 10 Date Signed: 11/24/2017 12:30 PM Electronically Signed By:Bibiana Reyes RN [facility] CM Progress Note CM Note CM Note Notes: Patient admitted with new onset A Fib, falls, UTI. She is also undergoing radiation for stage IV squamous cell carcinoma of the lung. She has a history of breast cancer. Patient lives independently, is , and has one daughter who lives locally. PT/OT have been ordered, and the evals will help us with discharge planning. Case Management will follow. Date Signed: 11/18/2017 02:32 PM Electronically Signed By:Kimi Araiza RN [facility] Progress Note CM Note CM Note Notes: Spoke w/pt and family re; dc poc. PT/OT recommend SNF. Pt has been to in the past, that is their 1st choice. They also want referrals sent to [facility]. DC Plan: SNF Date Signed: 11/19/2017 01:16 PM Electronically Signed By:Bibiana Reyes RN [facility] CM Progress Note CM Note CM Note Notes: CM spoke w/ GEN Bolden regarding d/c POC. CM set up [facility] transport for pt to go to [facility] for radiation today for 4PM. Pts original appointment was scheduled for 1:30PM but [facility] could not accommodate that transport time. CM completed PCS form. CM met w/ pt and and informed them of the radiation times. Kevin Samaniego, [facility] and [facility] all have said no. CM spoke w/ Henna at [facility] and she reports that she will be finished w/ her round of radiation this Tuesday. However, pts oncologist would like to start radiation on a different area starting next week and will most likely need to go M-F. Oncologist will discuss w/ pt after her radiation therapies today. CM left a msg for Katherine at [facility] to see if she will be able to accommodate someone with radiation therapies daily. CM to follow. Plan: TBD Date Signed: 11/21/2017 03:26 PM Electronically Signed By:EAN Kelly [facility] Progress Note CM Note CM Note Notes: Pt had palliative consult today, pt and almay would like to engage hospice, they would like a referral sent to [facility]. CELSA faxed referral via [employer]. [place] Plan: Hospice + home care (private pay) Date Signed: 11/23/2017 11:52 AM Electronically Signed By:Bibiana Reyes RN Case Management Discharge Plan Note Case Management Discharge Discharge Order Complete? Answers: Yes Patient to Obtain Answers: Other Notes: [facility] Medications Transportation Arranged Answers: [facility] will Pick (Date 11/24/2017 01:00 PM & Time) Case Management Transport Answers: Yes Form Complete Faxed Final Orders Answers: Yes Agency/Facility Transfer Answers: Yes Report Printed & Faxed to Receiving Agency Family Notified Answers: Yes Discharge Comments Notes: Pt had Hospice consult today, Prisca from [facility] here and has accepted pt into the [facility] care center. RN to call report. Date Signed: 11/24/2017 12:29 PM Electronically Signed By:Bibiana Reyes RN Intervention Information Intervention Type:*MCMANUS-Signed Date of Service:11/18/2017 10:16 AM Patient Type:Observation Staff Member:Guerline Rebolledo Hours: Discipline: Severity: Comment: Intervention Type:*IM-Signed Date of Service:11/24/2017 12:10 PM Patient Type:Inpatient Staff Member:Guerline Rebolledo Hours: Discipline: Severity: Comment:
== END 2017-11-24 13:15 | disposition hospice, home (50) | DRG 181 ==
LOC: OBSVTOIN 13:07 → F3E 16:54
PROVIDERS: ADMIT Student in an Organized Health Care Education/Training Program; ATTEND Student in an Organized Health Care Education/Training Program
DX: C34.90 Malignant neoplasm of unspecified part of unspecified bronchus or lung (principal); N39.0 Urinary tract infection, site not specified; E87.1 Hypo-osmolality and hyponatremia; C78.6 Secondary malignant neoplasm of retroperitoneum and peritoneum; C79.89 Secondary malignant neoplasm of other specified sites; I48.91 Unspecified atrial fibrillation; G89.3 Neoplasm related pain (acute) (chronic); M62.81 Muscle weakness (generalized); R29.6 Repeated falls; D53.9 Nutritional anemia, unspecified; Z90.2 Acquired absence of lung [part of]; Z85.3 Personal history of malignant neoplasm of breast
CPT/HCPCS: 82947-QW; 97116-GP; 97161-GP; 97166-GO; 97530-GP; 97535-GO; G0378; G8978-GP-CJ; G8979-GP-CI; G8987-GO-CK; G8988-GO-CI; J0696; Q9967